=== PATIENT | male | born 1940 | race Caucasian/White ===

== ENCOUNTER 2018-01-14 20:56 | Inpatient (IN) | payer OTHER, BC ==
[2018-01-14] MEDS ORDERED: ONDANSETRON 4 MG/2 ML VIAL ONE (21:13)
[2018-01-14] MEDS ORDERED: ONDANSETRON 4 MG/2 ML VIAL IVP ONE (21:14)
[2018-01-14] MEDS ORDERED: NS 1,000 ML IV ONE ×2 (21:14→21:15)
[2018-01-14] MEDS ORDERED: KETOROLAC 30 MG/1 ML SDV IVP ONE (21:15)
[2018-01-14 21:20] LABS: PLATELET COUNT 232 10^3/uL (150-400)
--- NOTE | 2018-01-14 21:21 | CPEKG ---
Heart Rate: 84 RR Interval: 714 P-R Interval: 144 QRSD Interval: 102 QT Interval: 384 QTC Interval: 454 P [place]: 53 QRS [place]: -18 T Wave [place]: 66 EKG Severity - OTHERWISE NORMAL ECG - EKG Impression: SINUS RHYTHM EKG Impression: BORDERLINE LEFT AXIS DEVIATION EKG Impression: Early right bundle branch block Electronically Signed By: Kalpesh Best 14-Jan-2018 21:25:24
--- NOTE | 2018-01-14 21:24 | EDPHY ---
H & P Stated Complaint: ABD PAIN AND VOMITING FOR PAST 24 HOURS Time Seen by Provider: 01/14/18 21:08 HPI/ROS: CHIEF COMPLAINT: Abdominal pain HISTORY OF PRESENT ILLNESS: Patient is a 77-year-old man who comes to the emergency department. He is visiting from [place]. He is complaining of abdominal pain primarily in left lower quadrant as well as nausea and several episodes of vomiting nonbloody. He was also diagnosed with a urinary tract infection by his functional medicine chiropractor in [place] on and has been taking herbal medications since. He has not had a fever. No diarrhea. He states that he used an enema earlier today and had a denies bowel movement. He has a history of appendectomy in no cardiac disease, no chest pain or shortness of breath. REVIEW OF SYSTEMS: Constitutional: denies: chills, fever, recent illness, recent injury EENTM: denies: blurred vision, double vision, nose congestion Respiratory: denies: cough, shortness of breath Cardiac: denies: chest pain, irregular heart rate, lightheadedness, palpitations Gastrointestinal/Abdominal: See HPI Genitourinary: denies: dysuria, frequency, hematuria, pain Musculoskeletal: denies: joint pain, muscle pain Skin: denies: lesions, rash, jaundice, bruising Neurological: denies: headache, numbness, paresthesia, tingling, dizziness, weakness Hematologic/Lymphatic: denies: blood clots, easy bleeding, easy bruising Immunologic/allergic: denies: HIV/AIDS, transplant EXAM: GENERAL: Uncomfortable appearing HEAD: Atraumatic, normocephalic. EYES: Pupils equal round and reactive to light, extraocular movements intact, sclera anicteric, conjunctiva are normal. ENT: TMs normal, nares patent, oropharynx clear without exudates. Moist mucous membranes. NECK: Normal range of motion, supple without lymphadenopathy or JVD. LUNGS: Breath sounds clear to auscultation bilaterally and equal. No wheezes rales or rhonchi. HEART: Regular rate and rhythm without murmurs, rubs or gallops. ABDOMEN: Left lower quadrant tenderness, no guarding or rebound BACK: No CVA tenderness, no spinal tenderness, step-offs or deformities EXTREMITIES: Normal range of motion, no pitting or edema. No clubbing or cyanosis. NEUROLOGICAL: Cranial nerves II through XII grossly intact. Normal speech, normal gait. 5/5 strength, normal movement in all extremities, normal sensation PSYCH: Normal mood, normal affect. SKIN: Warm, dry, normal turgor, no visible rashes or lesions. Source: Patient Exam Limitations: No limitations - Personal History Current Tetanus/Diphtheria Vaccine: Unsure Current Tetanus Diphtheria and Acellular Pertussis (TDAP): Unsure - Medical/Surgical History Hx Asthma: No Hx Chronic Respiratory Disease: No Hx Diabetes: No Hx Cardiac Disease: No Hx Renal Disease: No Hx Cirrhosis: No Hx Alcoholism: No Hx HIV/AIDS: No Hx Splenectomy or Spleen Trauma: No Other PMH: APPY, "LEAKY GUT" TAKES SUPPLEMENTS - Family History Significant Family History: No pertinent family hx - Social History Smoking Status: Never smoked Alcohol Use: Sober Drug Use: None Constitutional: Initial Vital Signs Temperature (C) 37.0 C 01/14/18 21:04 Heart Rate 120 H 01/14/18 21:04 Respiratory Rate 20 01/14/18 21:04 Blood Pressure 167/118 H 01/14/18 21:04 O2 Sat (%) 90 L 01/14/18 21:04 O2 Delivery Mode Room Air Allergies/Adverse Reactions: No Known Allergies Allergy (Unverified 01/14/18 21:06) Home Medications: Medication Instructions Recorded NK [No Known Home Meds] 01/15/18 Medical Decision Making - Diagnostics EKG Interpretation: An EKG obtained and was read and documented in trace view. Please see trace view for full reading and report. Sinus rhythm early right bundle branch block , no previous for comparison Imaging: Discussed imaging studies w/ call center dispatcher Radiologist ED Course/Re-evaluation: 10:40 p.m. the patient's abdominal exam on repeat is benign. We discussed the CT findings. He has a thickening of the cecum that could be consistent with cancer and a small bowel obstruction proximally. I reviewed the images with Dr. Lawson who recommends medical admission. He tells me had a colonoscopy several years ago but cannot tell me when. No blood in his stool. 10:50 p.m. I discussed the case with Dr Schultz who will admit to the medical service. We have also paged gastrology. 10:54 p.m. I discussed the case with Dr. Plasencia who will consult. Differential Diagnosis: Partial list of the Differential diagnosis considered include but were not limited to; obstruction, diverticulitis, colitis, and although unlikely based on the history and physical exam, I also considered perforation, ischemia. - Data Points Laboratory Results: Laboratory Results 01/14/18 21:09 01/14/18 21:09 Medications Given: Sodium Chloride (Ns) 1,000 mls @ 75 mls/hr IV CONT GILLES Stop: 07/13/18 23:44 Last Admin: 01/15/18 12:00 Dose: 1,000 mls Discontinued Medications Sodium Chloride (Ns) 1,000 mls @ 0 mls/hr IV ONCE ONE PRN Reason: Wide Open Stop: 01/14/18 21:15 Last Admin: 01/14/18 21:16 Dose: 1,000 mls Sodium Chloride (Ns) 1,000 mls @ 0 mls/hr IV EDNOW ONE; Wide Open PRN Reason: Protocol Stop: 01/14/18 21:16 Last Admin: 01/14/18 21:20 Dose: 1,000 mls Ketorolac Tromethamine (Toradol) 15 mg IVP EDNOW ONE Stop: 01/14/18 21:16 Last Admin: 01/14/18 21:20 Dose: 15 mg Ondansetron HCl (Zofran) 4 mg IVP EDNOW ONE Stop: 01/14/18 21:15 Last Admin: 01/14/18 21:17 Dose: 4 mg Polyethylene Glycol/Electrolytes (Gavilyte - G) 4,000 ml PO ONCE ONE Stop: 01/15/18 11:46 Last Admin: 01/15/18 12:17 Dose: 4,000 ml Departure - Departure Disposition: [facility] Inpatient Acute Clinical Impression: Abdominal pain Qualifiers: Abdominal location: generalized Qualified Code(s): R10.84 - Generalized abdominal pain Condition: Fair
[2018-01-14] MEDS ORDERED: IOPAMIDOL (ISOVUE-300) 100 ML BTL ONE (21:44)
[2018-01-14 22:06] LABS: INR 1.07 (0.83-1.16); PROTIME(PATIENT) 14.1 SEC (12.0-15.0)
[2018-01-14] MEDS ORDERED: ACETAMINOPHEN 325 MG TAB PO PRN (23:41)
[2018-01-14] MEDS ORDERED: HYDROmorphONE/DILAUDID 2 MG/ML INJ IVP PRN (23:41)
[2018-01-15] MEDS: NS 1,000 ML IV SCH ×2 (00:28→12:00)
[2018-01-15 04:59] LABS: PLATELET COUNT 168 10^3/uL (150-400)
--- NOTE | 2018-01-15 08:41 | PDGENHP ---
History and Physical - Chief Complaint Abdominal pain nausea vomiting - History of Present Illness Source-patient provides history appears reliable. EMR was reviewed and case discussed with ED provider. HPI-this is a very pleasant 77-year-old gentleman with past medical history of chronic diarrhea, neuropathy in feet and otherwise healthy presents emergency department today with complaints of worsening left lower quadrant and nausea vomiting today. Patient reports that he was recently diagnosed with a bladder infection by a functional chiropractor who with herbal remedies. Patient resides in [place] primarily but travels to [place] several times per year. Patient arrived on on Sunday day prior to arrival in the ER and with PICC development of a cramping on and bloating pain diffusely but slightly more concentrated in his lower abdomen. Patient had several episodes of nausea vomiting without any hematemesis or biliary emesis and. He reports that he did not have a bowel movement for several days and was feeling a little constipated so he gave himself an enema he had a good bowel movement with dark stool but denied any blood or tarry stools. Patient denies any fevers or chills. He has not had any complaints of dysuria hematuria but does note bladder spasms. Patient with a previous history of appendectomy and colonoscopy multiple years ago. He has a history of basal cell carcinoma which was previously resected. No known sick contacts. History Information - Allergies/Home Medication List Allergies/Adverse Reactions: No Known Allergies Allergy (Unverified 01/14/18 21:06) Home Medications: Glucosamine Sulfate Dipot Chlr [Glucosamine] 1,000 mg PO 01/14/18 [Last Taken Unknown] L Glutamine 01/14/18 [Last Taken Unknown] Psyllium Husk [Fiber] 0.4 gm PO 01/14/18 [Last Taken Unknown] I have personally reviewed and updated: family history, medical history, social history, surgical history - Past Medical History Additional medical history: Chronic diarrhea, basal cell carcinoma status post resection, neuropathy in lower feet. - Surgical History Additional surgical history: Appendectomy, colonoscopy greater than 15 years ago , rotator cuff surgery, basal cell carcinoma resection - Family History Additional family history: Mother with history of cancer unknown type, father at an at elderly age following an MVA. - Social History Smoking Status: Never smoked Alcohol Use: Sober Drug Use: None Additional social history: Patient is retired he travels from [place] intermittently to [place]. Cor status-full Review of Systems Review of Systems: ROS: 10pt was reviewed & negative except for what was stated in HPI & below Genitourinary: Reports: other (Patient reporting some bladder spasm.). Denies: dysuria, hematuria Neurological: Reports: numbness (Chronic neuropathy in lower extremities.). Denies: weakness Physical Exam Physical Exam: Selected Entries 01/14/18 01/15/18 21:04 00:28 Blood Pressure Automatic Method Heart Rate 120 H 70 Respiratory 20 16 Rate O2 Sat (%) 90 L 93 Temperature (C) 37.0 C 37.0 C Blood Pressure 167/118 H 123/72 H Mean Arterial 134 H 89 Pressure (MAP) Activity During At Rest Vital Signs O2 Delivery Room Air Room Air Mode Blood Pressure Right Source Upper Arm Automatic Temperature Oral Oral Source Heart Rate Heart Rate/ Source Monitor Constitutional: no apparent distress, chronically ill appearing, other (NAD. Very pleasant elderly frail-appearing male is lying quietly in bed. Abdomen is slightly distended.) Eyes: PERRL, anicteric sclera, EOMI, No scleral injection Ears, Nose, Mouth, Throat: no oral mucosal ulcers, dry mucous membranes, other ( No nasal discharge), No poor dentition Cardiovascular: regular rate and rhythym, no murmur, rub, or gallop, pulses symmetric bilaterally, No edema Peripheral Pulses: 2+: dorsalis-pedis (R), dorsalis-pedis (L) Respiratory: no respiratory distress, no rales or rhonchi, clear to auscultation Gastrointestinal: no palpable masses, tenderness (L LQ), guarding (Patient with some voluntary guarding. He does withdraw from exam initially palpation in the left lower quadrant but is noting pain bilateral lower quadrants greatest in the left lower quadrant.), distension, other (Slightly hypoactive bowel sounds but present.), No rebound Skin: warm, normal color, no rashes or abrasions, other (Patient with pallor) Musculoskeletal: full muscle strength, No pain with ROM Neurologic: AAOx3, sensation intact bilaterally, CN II-XII Intact (Grossly nonfocal), No weakness, No facial droop Psychiatric: interacting appropriately, not anxious, not encephalopathic, thought process linear, No anxious, No poor insight, No poor judgement, No poor memory Lab Data & Imaging Review 01/15/18 04:28 01/15/18 04:28 Laboratory Tests 01/14/18 01/14/18 01/14/18 21:09 21:09 21:42 WBC 14.43 H RBC 5.04 Hgb 16.1 Hct 47.1 MCV 93.5 MCH 31.9 MCHC 34.2 RDW 12.8 Plt Count 232 MPV 9.7 Neut % (Auto) 87.4 H Lymph % (Auto) 5.[address] [place] % (Auto) 6.2 Eos % (Auto) 0.0 L Baso % (Auto) 0.3 Nucleat RBC Rel Count 0.0 Absolute Neuts (auto) 12.62 H Absolute Lymphs (auto) 0.79 L Absolute Monos (auto) 0.89 H Absolute Eos (auto) 0.00 L Absolute Basos (auto) 0.04 Absolute Nucleated RBC 0.00 Immature Gran % 0.6 Immature Gran # 0.09 PT 14.1 INR 1.07 APTT 25.7 Sodium 140 Potassium 4.3 Chloride 103 Carbon Dioxide 21 L Anion Gap 16 BUN 19 Creatinine 1.4 H Estimated GFR 49 Glucose 161 H Calcium 11.6 H Phosphorus 2.2 L Total Bilirubin 1.1 Conjugated Bilirubin 0.3 Unconjugated Bilirubin 0.8 AST 29 ALT 32 Alkaline Phosphatase 118 Total Protein 6.7 Albumin 4.4 Lipase 314 H Imaging Review: CT Scan of the Abdomen and Pelvis (With Contrast) at 2159 hours History: Abd Pain Comparison: None Technique: Axial computed tomographic images of the abdomen and pelvis were obtained with the uneventful intravenous administration of 75mL Isovue 300 contrast. No oral contrast. Dose reduction techniques were utilized. Findings: Lung bases: Normal. Liver: The liver enhances homogeneously and has a smooth surface contour. There are numerous well circumscribed hypoattenuating foci within the liver, those which are large enough to measure are simple fluid attenuation. No enhancing liver lesions are present. Biliary System: No Biliary ductal dilation. Spleen: Normal. Pancreas: Normal. Adrenals: Normal. Kidneys: The kidneys enhance symmetrically with no evidence of calculus or obstruction. The 10 mm cortical cyst within the medial left kidney appears simple. The bladder is unremarkable. Abdominal Aorta: No aneurysm. The small bowel is diffusely fluid distended to the ileocecal junction. The cecum and ileocecal junction are markedly thickened up to 2.1 cm (image 47) over a total segment length of approximately 6.3 cm. There is adjacent fat stranding and reactive fluid. The remainder of the ascending, transverse, descending and sigmoid colon are unremarkable. No significant diverticular disease. There is enlargement of lymph nodes within the ileocecal mesentery, the largest measuring up to 1.3 cm (image 41). There is free fluid layering within the dependent pelvis and a small amount of perihepatic and perisplenic fluid as well. There is no evidence of acute fracture. A rounded lytic area within the S2 segment of the sacrum lacks overt aggressive appearance and may represent a bone cyst. There are degenerative changes within the lower lumbar spine. Impression: 1. Marked segmental thickening of the cecum and ileocecal junction with mild surrounding inflammation and lymphadenopathy. Finding is most worrisome for underlying carcinoma or lymphoma. Pattern is less typical for inflammatory or infectious colitis. Direct endoscopic evaluation is recommended. 2. Partial small bowel obstruction secondary to cecal thickening and edema. 3. Small volume ascites. 4. Numerous simple appearing liver cysts. 5. Small lytic area within the S2 segment of the sacrum favored to represent a bone cyst as imaging features are nonaggressive. Visualized and Interpreted imaging results: Yes Visualized and Interpreted EKG results: Yes EKG additional interpertation: NSR in the 80s. LAD and right bundle branch block. QTC 454. No acute ST changes. Assessment & Plan Assessment: A/P: Pleasant 77-year-old gentleman with no significant past medical history who presents to the emergency department today with complaints of lower abdominal pain and nausea vomiting. Small bowel obstruction - patient with a area concerning for cecal thickening at the ileocecal junction. He does have a history of appendectomy. He has not had any fevers or chills. He has a slight leukocytosis but is afebrile. Patient will be placed on bowel rest at this time. GI was consulted from the emergency department will plan to see the patient in the morning. Patient will be NPO. He does not have any further nausea or vomiting at this time and does not require NG tube placement for decompression therapy. I did review with the patient differential including stricture, infectious process or possibly malignancy. Will await further GI recommendations. Patient will not be started on any antibiotic therapy at this time. Abdominal pain (Acute) - patient is abdominal pain at this time is limited to sensation of bloating. He does have Dilaudid available p.r.n. But at this time is declining and reports that he is tolerating pain adequately. Nausea vomiting - improved continue Zofran p.r.n. Leukocytosis - likely reactive in setting of nausea, vomiting, dehydration. Patient is afebrile. Will repeat CBC in the morning. Pyuria - patient reports previous history of bladder infection although he did not have a year UA completed. On today's study does show some pyuria with 1+ bacteria this is a very concentrated sample in setting of significant dehydration and will plan to send the urine for culture. Currently patient is denying any dysuria hematuria and has denies any current bladder spasm pain. He is afebrile so will hold off on antibiotic therapy for now and await culture findings. Ascites - in setting of cecal thickening concern for possible malignancy. Patient with multiple liver cysts noted on CT but no evidence of metastatic disease. FEN - IV fluids overnight while patient is NPO and for rehydration following his episodes of nausea vomiting. Electrolyte replacement p.r.n.. NPO. PPX-SCDs. Holding anticoagulation pending GI recommendations. Mobilize as tolerated. Cor status-full Disposition-patient did into the patient's status at this time in setting of bowel obstruction and findings of cecal thickening. Anticipate greater than 2 midnight stay and further evaluation of findings as noted above.
[2018-01-15] MEDS ORDERED: PEG 3350/NA SULF,BICARB,CL/KCL (GAVILYTE-G) 4000 ML BTL PO ONE (11:45)
--- NOTE | 2018-01-15 11:51 | PDMN ---
Medical Necessity Medical necessity: Pt meets IP criteria per MD; est los >2 mn for eval/tx of abdominal pain, N/V & dehydration r/t small bowel obstruction, w/ascites & cecal thickening concerning for possible malignancy; admit for further workup/ monitoring, GI consult & IVFs; hx chronic diarrhea, basal cell carcinoma s/p resection, neuropathy; per H&P & order 01/14/18
--- NOTE | 2018-01-15 11:58 | HOSPPROG ---
Hospitalist Progress Note Assessment/Plan: # acute bowel obstruction -patient presented with severe abdominal pain last successful stool was 24 hr ago with enema CT abdomen(personally reviewed and interpreted) shows concerning cecal/ileal cecal thickening consistent with possible malignancy Patient does not typically engage in allopathic medicine is anxious to return home to his osteopathic providers - GI consulted for recs related to colonoscopy - continue NPO - continue IV fluids - encourage ambulation - hopeful we can medically treat patient's bowel obstruction allowing him to return to [place] in seek ongoing care with his normal providers # urinary tract infection- urinalysis consistent with infection- cultures pending - patient has been aware he has a urinary tract infection and has chosen to treat it with molecular medicines rather than antibiotics - patient refusing antibiotics # presumed CKD- patient not receiving treatment # prophylaxis-ambulation # diet NPO # disposition greater than 2 midnights as the patient requires ongoing care for bowel obstruction I have discussed the case with Dr. Plasencia- he will review his findings with patient today Subjective: Pain improved Objective: Vital Signs Temp Pulse Resp BP Pulse Ox 36.9 C 72 18 124/78 H 100 01/15/18 10:31 01/15/18 10:31 01/15/18 10:31 01/15/18 10:31 01/15/18 10:31 Laboratory Results 01/15/18 04:28 01/15/18 04:28 01/14/18 01/15/18 01/16/18 05:59 05:59 05:59 Intake Total 2483 Output Total 200 Balance 2283 PT 14.1 SEC (12.0-15.0) 01/14/18 21:42 INR 1.07 (0.83-1.16) 01/14/18 21:42 - Physical Exam Constitutional: no apparent distress Eyes: anicteric sclera Ears, Nose, Mouth, Throat: dry mucous membranes Cardiovascular: regular rate and rhythym Respiratory: no respiratory distress Gastrointestinal: tenderness, No normoactive bowel sounds Genitourinary: no bladder fullness Skin: warm Musculoskeletal: No asymmetric calves Neurologic: AAOx3 Psychiatric: interacting appropriately Lymph, Heme, Immunologic: no cervical LAD ICD10 Worksheet Patient Problems: Problems Problem Status Onset Abdominal pain Acute
--- NOTE | 2018-01-15 12:16 | ASMTCASEMG ---
Living Arrangements What is your living Answers: Alone arrangement? Who do you live with? Type Of Residence What kind of residence do Answers: House you live in? Discharge Plan Comments Coordination Status Comments Notes: Pt is a 77 y/o man admitted for abdominal pain. Pt lives in [place]. Pt has a supportive life partner. GI has been consulted. Needs are TBD at this time. CM to follow. Plan: TBD Date Signed: 01/15/2018 12:16 PM Electronically Signed By:PAO Simon
--- NOTE | 2018-01-15 12:33 | GCON ---
[f rep st] CONSULTATION DATE OF CONSULTATION: 01/15/2018 REFERRING PHYSICIAN: Goldie Schultz MD CHIEF COMPLAINT: Abdominal pain, nausea, and vomiting. HISTORY OF PRESENT ILLNESS: Arnol is a 77-year-old gentleman who was admitted to the hospital last night through the emergency room with complaints of generalized lower abdominal pain, nausea, and vomiting. He states that occasionally he has difficulties with constipation related to travel and does travel to [place] several times per year. He has had no complaints of abdominal pain, nausea, or vomiting prior to this episode. He was recently diagnosed with a bladder infection and has been treated by a molecular practitioner and functional chiropractor with various remedies. He has not been on any antibiotics. He does have a remote history of appendectomy, which was uncomplicated. He had a colonoscopy performed 15 years ago, which he states was normal. There was no family history of GI malignancies. He has denied any fever, chills, or night sweats. He has had no further nausea or vomiting since admission. He has had some [id number] right lower quadrant and lower mid abdomen/pelvic discomfort since admission. MEDICATIONS: Glucosamine 1000 mg p.o. daily, L-Glutamine daily, and psyllium husk fiber 0.4 g p.o. daily. ALLERGIES: He has no known drug allergies. PAST MEDICAL HISTORY: Appendectomy many years ago and tonsillectomy as a child. His last colonoscopy was performed 15 years ago and was normal. Peripheral neuropathy. FAMILY HISTORY: Negative for GI malignancies, peptic ulcer disease, or inflammatory bowel disease. SOCIAL HISTORY: He is retired. He lives in [place]. He does not smoke tobacco or drink significant quantities of alcohol. REVIEW OF SYSTEMS: With the exception of the abdominal pain, nausea, vomiting, some recent constipation, and chronic lower extremity numbness, which he relates to neuropathy, this was a negative for comprehensive review of systems. PHYSICAL EXAMINATION: VITAL SIGNS: Temperature is 36.9 Celsius, pulse is 72 and regular, blood pressure is 124/78, and respiratory rate is 18. GENERAL: This is a well-developed and well-nourished male in no apparent distress. INTEGUMENT: Clear. HEENT: Head is atraumatic and normocephalic. Pupils are equal, round, and reactive to light. EOMs are intact. Sclerae are anicteric. Nares are patent. Mucous membranes are moist. Dentition is good. NECK: Supple. Trachea is midline. LYMPHATICS: No palpable cervical or axillary adenopathy. PULMONARY: Lungs are clear to percussion and auscultation. CARDIOVASCULAR: Regular rhythm and rate. Normal S1 and S2 without murmur. Peripheral pulses are strong bilaterally. No pedal edema. GASTROINTESTINAL: Abdomen is mildly distended with positive bowel sounds. No liver or spleen tip palpable. No masses or tenderness noted. No fluid wave noted. EXTREMITIES: Without deformity. NEUROLOGIC: The patient is alert and oriented x3. There are no focal neurologic deficits. LABORATORY DATA: White count is 9.75, hemoglobin 13.2, hematocrit 39.5, and platelets 168,000. Pro-time is 14.1, INR is 1.07, and PTT is 25.7. Electrolytes are normal. BUN is 22, creatinine 1.4, glucose 114, calcium 9.8, phosphorus 3.5, and magnesium is 2.4. LFTs are normal. Lipase is slightly elevated at 314. Urinalysis shows +3 leukocyte esterase, 50 to 182 RBCs per high-powered field, 50 to 182 WBCs per high powered field, and +1 bacteria. IMAGING: CT scan of the abdomen reveals marked thickening of the cecum and ileocecal junction with mild surrounding inflammatory changes and lymphadenopathy, partial small bowel obstruction, small amount of pelvic ascites , numerous simple liver cysts, and a small lytic area on S2 of the sacrum consistent with a bony cyst. IMPRESSION: 1. Abdominal pain, nausea, vomiting, and partial small-bowel obstruction, likely related to inflammatory versus infiltrative process of the ileocecal valve. Differential diagnosis includes cecal cancer versus lymphoma of the distal small bowel versus Crohn's disease (less likely). 2. Active urinary tract infection (the patient has declined antibiotic therapy) . RECOMMENDATIONS: 1. Clear liquid diet followed by Colyte prep slowly today. 2. Total colonoscopy. (I had a lengthy discussion with the patient today concerning pros and cons of colonoscopy to assess the etiology of the abnormality in his cecum. He has agreed to proceed with a Colyte prep and colonoscopy tomorrow). 3. We will follow with you. /[id number]/MODL MTDD
--- NOTE | 2018-01-16 10:51 | HOSPPROG ---
Hospitalist Progress Note Assessment/Plan: 77 yo M w abd pain, SBO, cecal mass acute bowel obstruction -patient presented with severe abdominal pain last successful stool was 24 hr ago with enema CT abdomen(personally reviewed and interpreted) shows concerning cecal/ileal cecal thickening consistent with possible malignancy Patient does not typically engage in allopathic medicine is anxious to return home to his osteopathic providers tolerated prep normal abd exam; SBO appears to have resolved urinary tract infection- urinalysis consistent with infection- cultures pending - patient has been aware he has a urinary tract infection and has chosen to treat it with molecular medicines rather than antibiotics - patient refusing antibiotics does endorse urinary sx afebrile presumed CKD- patient not receiving treatment # prophylaxis-ambulation # diet NPO # disposition greater than 2 midnights as the patient requires ongoing care for bowel obstruction Subjective: case d/w dr floyd. abd pain improved; tolerated golytely prep Objective: Vital Signs Temp Pulse Resp BP Pulse Ox 36.8 C 63 16 133/71 H 93 01/16/18 08:00 01/16/18 08:00 01/16/18 08:00 01/16/18 08:00 01/16/18 08:00 Laboratory Results 01/15/18 04:28 01/15/18 04:28 01/15/18 01/16/18 01/17/18 05:59 05:59 05:59 Intake Total 2483 889 Output Total 200 Balance 2283 889 PT 14.1 SEC (12.0-15.0) 01/14/18 21:42 INR 1.07 (0.83-1.16) 01/14/18 21:42 - Physical Exam Constitutional: no apparent distress, appears nourished Eyes: PERRL, anicteric sclera Ears, Nose, Mouth, Throat: moist mucous membranes, hearing normal Cardiovascular: regular rate and rhythym, no murmur, rub, or gallop, No tachycardia Respiratory: no respiratory distress, no rales or rhonchi Gastrointestinal: normoactive bowel sounds, soft, non-tender abdomen, No guarding, No rebound Genitourinary: no bladder fullness, No manriquez in urethra Skin: warm, normal color Musculoskeletal: full muscle strength, no muscle tenderness Neurologic: AAOx3 ICD10 Worksheet Patient Problems: Problems Problem Status Onset Abdominal pain Acute
[2018-01-16] MEDS ORDERED: LR 1,000 ML IV ONE (12:25)
--- NOTE | 2018-01-16 12:50 | PDANEPAE ---
ANE History of Present Illness 77 yo male with acute onset abd pain, full feeling, and diarrhea. ANE Past Medical History - Cardiovascular History Hx Hypertension: No Hx Arrhythmias: No - Pulmonary History Hx COPD: No Hx Oxygen in Use at Home: No Hx Sleep Apnea: No Sleep Apnea Screening Result - Last Documented: Negative - Endocrine History Hx Diabetes: No Hypothyroid: No Obesity: no - Renal History Renal History Comment: Pt believes his renal function has been diminished for awhile. Cr 1.4 - Neurological & Psychiatric Hx Hx Neurological and Psychiatric Disorders: Yes Neurological / Psychiatric History Comment: Neuropathy in feet. Unknown etiology. - Chronic Pain History Chronic Pain: No ANE Review of Systems Review of Systems: - Systems Constitutional: Reports: no symptoms Cardiac: Reports: no symptoms Respiratory: Reports: no symptoms Gastrointestinal: Reports: abdominal pain, abdominal distention ANE Patient History - Allergies Allergies/Adverse Reactions: No Known Allergies Allergy (Unverified 01/14/18 21:06) - Home Medications Home Medications: NK [No Known Home Meds] 01/15/18 [Last Taken Unknown] - NPO status NPO Since - Liquids (Date): 01/16/18 NPO Since - Liquids (Time): 07:00 NPO Since - Solids (Date): 01/16/18 NPO Since - Solids (Time): 00:00 - Anes Hx Anes Hx: no prior problems - Smoking Hx Smoking Status: Never smoked - Alcohol Use Alcohol Use: Sober - Family Anes Hx Family Anes Hx: neg - N/A ANE Labs/Vital Signs - Labs Result Diagrams: 01/15/18 04:28 01/15/18 04:28 - Vital Signs Blood Pressure: 112/56 Heart Rate: 59 Respiratory Rate: 16 O2 Sat (%): 91 Height: 185.42 cm Weight: 77.9 kg ANE Physical Exam - Airway Mallampati Score: Class 3 Mouth exam: normal dental/mouth exam - Cardiovascular Cardiovascular: regular rate and rhythym - ASA Status ASA Status: II ANE Anesthesia Plan Anesthesia Plan: GA with mask Total IV Anesthesia: Yes
[2018-01-16] MEDS ORDERED: PROPOFOL/EMULSION 500 MG/50 ML BOTTLE IV ONE (13:14)
[2018-01-16] MEDS ORDERED: LIDOCAINE 2% 5 ML SDV ONE (13:14)
[2018-01-16] MEDS ORDERED: ACETAMINOPHEN 500 MG TAB PO PRN (13:33)
[2018-01-16] MEDS ORDERED: NALOXONE HCL 0.4 MG/ML INJ IVP PRN (13:33)
[2018-01-16] MEDS ORDERED: LR 500 ML IV PRN (13:33)
[2018-01-16] MEDS ORDERED: ONDANSETRON 4 MG/2 ML VIAL IVP PRN (13:33)
[2018-01-16] MEDS ORDERED: ALBUTEROL 3 ML DEYVIAL IH PRN (13:33)
--- NOTE | 2018-01-16 14:01 | POSTANESTH ---
Post Anesthetic Evaluation Cardiovascular Status: Normal, Stable Respiratory Status: Normal, Stable Level of Consciousness/Mental Status: Moderately Sleepy Pain Control: Adequate, Prn Tx Ordered Nausea/Vomiting Control: Adequate, Prn Tx Ordered Complications Possibly Related to Anesthesia: None Noted
--- NOTE | 2018-01-16 14:03 | GIREPORT ---
[facility] Surgical Services - Endoscopy Department Patient Name: Arnol Trujillo Procedure Date: 01/16/2018 11:01 AM Patient Type: Inpatient Attending MD/ ER Physician: Alejandro Plasencia MD Procedure: Colonoscopy Indications: Abnormal CT of the GI tract Providers: Alejandro Plasencia MD Medicines: Total IV Anesthesia (TIVA) Complications: No immediate complications. Description of Procedure: After obtaining informed consent, the scope was passed under direct vis ion. Throughout the procedure, the patient's blood pressure, pulse, and oxyg en saturations were monitored continuously. The Colonoscope with irrigatio n channel was introduced through the anus and advanced to the cecum, identified by palpation. The colonoscopy was somewhat difficult due to significant looping and a tortuous colon. Successful completion of the procedure was aided by using manual pressure and straightening and shortening the scope to obtain bowel loop reduction. The patient tolera christina the procedure well. The quality of the bowel preparation was excellent. Findings: A fungating, infiltrative and ulcerated completely obstructing large ma ss was found in the cecum. The mass was circumferential. No bleeding was present. Biopsies were taken with a cold forceps for histology. A 4 mm polyp was found in the distal ascending colon. The polyp was ses sile. The polyp was removed with a cold biopsy forceps. Resection and retriev al were complete. The transverse colon appeared normal. A 5 mm polyp was found in the descending colon. The polyp was sessile. The polyp was removed with a cold biopsy forceps. Resection and retrieval w ere complete. A 15 mm polyp was found in the sigmoid colon. The polyp was pedunculate d. The polyp was removed with a hot snare. Resection and retrieval were complete. The rectum appeared normal. The perianal and digital rectal examinations were normal. Estimated Blood Loss: Estimated blood loss: none. 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 - One 4 mm polyp in the distal ascending colon, removed with a cold bio psy forceps. Resected and retrieved. - The transverse colon is normal. - One 5 mm polyp in the descending colon, removed with a cold biopsy forceps. Resected and retrieved. - One 15 mm polyp in the sigmoid colon, removed with a hot snare. Resec christina and retrieved. - The rectum is normal. Recommendation: - [facility] patient to [facility] for [facility] care. - Clear liquid diet today. - Await pathology results. - Refer to a surgeon today. Attending Participation: I personally performed the entire procedure. Alejandro Plasencia MD Alejandro Plasencia MD 01/16/2018 2:02:48 PM This report has been signed electronicallyAlejandro Plasencia MD Number of Addenda: 0 Note Initiated On: 01/16/2018 11:01 AM Total Procedure Duration Time 0 hours 27 minutes 55 seconds [email or web address]
[2018-01-16] MEDS ORDERED: cefOXitin SODIUM 2 GM in STERILE WATER INJ 21 ML IV ONE (16:05)
--- NOTE | 2018-01-16 16:56 | SOAPPROG ---
SUSHANT Progress Note Assessment/Plan: Assessment/Plan: 77 Y M admitted with SBO found to be 2/2 obstructing cecal tumor. Personally reviewed CT images and colonoscopy report. Plan for lap assisted R hemicolectomy tomorrow, tentatively at 10:45. Clears for now and NPO after midnight. Risks and options discussed. Consent in chart. Dr. Hoang to see patient this evening. S: no pain or nausea now. O: alert, nad ctab rrr abd soft, nt 01/16/18 16:48 Objective: Vital Signs Temp Pulse Resp BP Pulse Ox 36.6 C 55 L 16 146/71 H 95 01/16/18 16:00 01/16/18 16:00 01/16/18 16:00 01/16/18 16:00 01/16/18 16:00 Laboratory Results 01/15/18 04:28 01/15/18 04:28 01/15/18 01/16/18 01/17/18 05:59 05:59 05:59 Intake Total 2483 889 925 Output Total 200 3 Balance 2283 889 922 PT 14.1 SEC (12.0-15.0) 01/14/18 21:42 INR 1.07 (0.83-1.16) 01/14/18 21:42 ICD10 Worksheet Patient Problems: Problems Problem Status Onset Abdominal pain Acute
--- NOTE | 2018-01-16 20:04 | PDGENHP ---
History & Physical Chief Complaint: CEAL CANCER, OBSTRUCTING History of Present Illness: 77 MALE WITH OBSTRUCTION 2/2 CECAL CA SEEN ON COLONOSCOPY AND CT. SUDDEN ONSET OF SX. NO HX OF ANEMIA, WT LOSS OR MELENA. RISKS AND OPTIONS FULLY DISCUSSED AND HE WISHES TO PROCEED WITH SURGERY Pertinent Past, Social, Family History: PHX: ROTATOR CUFF, APPE, BASALCELL. ROS - 10 PT REVIEW, HE DOES NOT SMOKE. FAM HX NONCONTRIB. NKA. MEDS NONE Relevant Physical Exam: HEENT NONICTERIC, NO ADENOPATHY, NO ORAL LESIONS. CHEST CLEAR. COR RR. ABD SOFT, NONTENDER, MILDLY DISTENDED, NO MASSES. GEN OK. EXTREM FULL PULSES. NEURO PHYSIOLOGIC Cardiorespiratory Assessment: IMP: OBSTRUCTING CECAL CANCER. PLAN:LAP RT HEMICOLECTOMY/ RISKS AND OPTIONS FULLY DISCUSSED
[2018-01-16] MEDS: HYDROmorphone HCL/NS 0.5 MG/ML SYR IVP PRN (23:29)
[2018-01-17] MEDS ORDERED: HEPARIN 1000 UNIT/1 ML MDV ONE (07:25)
[2018-01-17] MEDS ORDERED: BUPIVACAINE 0.5% 30 ML SDV ONE (07:25)
[2018-01-17] MEDS ORDERED: ceFAZolin 1 GM/5 ML SYR ONE (07:25)
--- NOTE | 2018-01-17 08:57 | SOAPPROG ---
SOAP Progress Note Assessment/Plan: Assessment 1. Cecal cancer-biopsied. 2. Several benign appearing colon polyps-removed. Plan: 1. Will review path this pathologist this am. 2. Right hemicolectomy today with Dr. Hoang. Alejandro Plasencia MD 01/17/18 08:54 Subjective: CC: Cecal tumor with partial bowel obstruction. Interval HPI: Patient slept well last night. One blood tinged fluid BM since colonoscopy. No abdominal pain, nausea or vomiting. Objective: Vital Signs Temp Pulse Resp BP Pulse Ox 36.9 C 59 L 16 146/74 H 97 01/17/18 07:53 01/17/18 07:53 01/17/18 07:53 01/17/18 07:53 01/17/18 07:53 Laboratory Results 01/15/18 04:28 01/15/18 04:28 01/16/18 01/17/18 01/18/18 05:59 05:59 05:59 Intake Total 889 1715 Output Total 253 Balance 889 1462 PT 14.1 SEC (12.0-15.0) 01/14/18 21:42 INR 1.07 (0.83-1.16) 01/14/18 21:42 Physical Exam - Physical Exam General Appearance: WD/WN, alert, no apparent distress Respiratory: lungs clear, normal breath sounds Cardiac/Chest: regular rate, rhythm Abdomen: normal bowel sounds, non-tender, soft Skin: normal color, warm/dry Neuro/Psych: normal mood/affect, oriented x 3 ICD10 Worksheet Patient Problems: Problems Problem Status Onset Abdominal pain Acute
--- NOTE | 2018-01-17 09:45 | HOSPPROG ---
Hospitalist Progress Note Assessment/Plan: 77 yo M w abd pain, SBO, cecal mass acute bowel obstruction - 2/2 obstructing cecal mass to OR today w dr [facility] urinary tract infection- urinalysis consistent with infection- cultures pending - patient has been aware he has a urinary tract infection and has chosen to treat it with molecular medicines rather than antibiotics - patient refusing antibiotics does endorse urinary sx afebrile presumed CKD- patient not receiving treatment prophylaxis-ambulation diet NPO disposition greater than 2 midnights as the patient requires ongoing care for bowel obstruction Subjective: case d/w nolan [facility] and [place] Objective: Vital Signs Temp Pulse Resp BP Pulse Ox 36.9 C 59 L 16 146/74 H 97 01/17/18 07:53 01/17/18 07:53 01/17/18 07:53 01/17/18 07:53 01/17/18 07:53 Laboratory Results 01/15/18 04:28 01/15/18 04:28 01/16/18 01/17/18 01/18/18 05:59 05:59 05:59 Intake Total 889 1715 Output Total 253 Balance 889 1462 PT 14.1 SEC (12.0-15.0) 01/14/18 21:42 INR 1.07 (0.83-1.16) 01/14/18 21:42 - Physical Exam Constitutional: no apparent distress, appears nourished Eyes: PERRL, anicteric sclera Ears, Nose, Mouth, Throat: moist mucous membranes, hearing normal Cardiovascular: regular rate and rhythym, no murmur, rub, or gallop Respiratory: no respiratory distress, no rales or rhonchi Gastrointestinal: normoactive bowel sounds, soft, non-tender abdomen Genitourinary: no bladder fullness, No manriquez in urethra Skin: warm, normal color Musculoskeletal: full muscle strength, no muscle tenderness Neurologic: AAOx3 ICD10 Worksheet Patient Problems: Problems Problem Status Onset Abdominal pain Acute
[2018-01-17] MEDS ORDERED: LR 1,000 ML IV ONE (12:10)
[2018-01-17] MEDS ORDERED: cefOXitin SODIUM 2 GM in STERILE WATER INJ 21 ML IV ONE (13:30)
--- NOTE | 2018-01-17 14:07 | PDANEPAE ---
ANE Past Medical History - Cardiovascular History Hx Hypertension: No Hx Arrhythmias: No Hx Chest Pain: No Hx Coronary Artery / Peripheral Vascular Disease: No Hx CHF / Valvular Disease: No Hx Palpitations: No - Pulmonary History Hx COPD: No Hx Asthma/Reactive Airway Disease: No Hx Recent Upper Respiratory Infection: No Hx Oxygen in Use at Home: No Hx Sleep Apnea: No Sleep Apnea Screening Result - Last Documented: Negative - Endocrine History Hx Diabetes: No Hypothyroid: No Hyperthyroid: No Obesity: no - Renal History Renal History Comment: Pt believes his renal function has been diminished for awhile. Cr 1.4 - Liver History Hx Hepatic Disorders: No - Neurological & Psychiatric Hx Hx Neurological and Psychiatric Disorders: Yes Neurological / Psychiatric History Comment: Neuropathy in feet. Unknown etiology. - Cancer History Hx Cancer: Yes - Congenital Disorder History Hx Congenital Disorders: No - GI History GERD: no Hx Gastrointestinal Disorders: Yes Gastrointestinal History Comment: colon cancer - Chronic Pain History Chronic Pain: No ANE Review of Systems Review of Systems: - Exercise capacity Exercise capacity: >=4 METS - Systems Cardiac: Reports: no symptoms Respiratory: Reports: no symptoms Hematologic/Lymphatic: Reports: anemia ANE Patient History - Allergies Allergies/Adverse Reactions: No Known Allergies Allergy (Unverified 01/14/18 21:06) - Home Medications Home Medications: NK [No Known Home Meds] 01/15/18 [Last Taken Unknown] - NPO status NPO Since - Liquids (Date): 01/16/18 NPO Since - Liquids (Time): 00:01 NPO Since - Solids (Date): 01/16/18 NPO Since - Solids (Time): 20:00 - Anes Hx Anes Hx: no prior problems - Smoking Hx Smoking Status: Never smoked - Alcohol Use Alcohol Use: Sober - Family Anes Hx Family Anes Hx: neg - N/A ANE Labs/Vital Signs - Labs Result Diagrams: 01/15/18 04:28 01/15/18 04:28 - Vital Signs Blood Pressure: 143/83 Heart Rate: 63 Respiratory Rate: 16 O2 Sat (%): 95 Height: 185.42 cm Weight: 76.249 kg ANE Physical Exam - Airway Neck exam: FROM Mallampati Score: Class 2 Mouth exam: normal dental/mouth exam - Pulmonary Pulmonary: no respiratory distress, no rales or rhonchi, clear to auscultation - Cardiovascular Cardiovascular: regular rate and rhythym, no murmur, rub, or gallop - ASA Status ASA Status: III ANE Anesthesia Plan Anesthesia Plan: general endotracheal anesthesia Total IV Anesthesia: No
[2018-01-17] MEDS ORDERED: PROPOFOL 200 MG/20 ML VIAL ONE (14:26)
[2018-01-17] MEDS ORDERED: REMIFENTANIL HCL 1 MG VIAL ONE ×2 (14:26→15:58)
[2018-01-17] MEDS ORDERED: fentaNYL 100 MCG/2 ML INJ ONE ×5 (14:26→17:39)
[2018-01-17] MEDS ORDERED: DEXAMETHASONE 4 MG/ML VIAL ONE (14:26)
[2018-01-17] MEDS ORDERED: PROPOFOL/EMULSION 500 MG/50 ML BOTTLE IV ONE ×2 (14:26→15:58)
[2018-01-17] MEDS ORDERED: ROCURONIUM 50 MG/5 ML VIAL ONE (14:26)
[2018-01-17] MEDS ORDERED: ONDANSETRON 4 MG/2 ML VIAL ONE (14:26)
[2018-01-17] MEDS ORDERED: LIDOCAINE 2% 5 ML SDV ONE (14:30)
[2018-01-17] MEDS ORDERED: oxyCODONE IR 5 MG TAB PO PRN (15:19)
[2018-01-17] MEDS ORDERED: NS 500 ML IV PRN (15:19)
[2018-01-17] MEDS ORDERED: NALOXONE HCL 0.4 MG/ML INJ IVP PRN ×2 (15:19→16:22)
[2018-01-17] MEDS ORDERED: HYDROCODONE/APAP 5/325 TAB PO PRN (15:19)
[2018-01-17] MEDS ORDERED: fentaNYL 100 MCG/2 ML INJ IVP PRN (15:19)
[2018-01-17] MEDS ORDERED: epHEDrine SULFATE 10 MG/ML SYR IVP PRN (15:19)
[2018-01-17] MEDS ORDERED: ONDANSETRON 4 MG/2 ML VIAL IVP PRN (15:19)
[2018-01-17] MEDS ORDERED: PROMETHAZINE HCL 25 MG/ML INJ IVP PRN (15:19)
[2018-01-17] MEDS ORDERED: PHENYLEPHRINE HCL 100 MCG/ML SYR IVP PRN (15:19)
[2018-01-17] MEDS ORDERED: GLYCOPYRROLATE 0.2 MG/1 ML VIAL ONE ×2 (16:17)
[2018-01-17] MEDS ORDERED: NEOSTIGMINE METHYLSULFATE 3 MG/3 ML SYR ONE (16:17)
--- NOTE | 2018-01-17 16:20 | ASMTCMCOM ---
CM Note CM Note Notes: Today Pt. had colectomy surgery w/ Dr. Hoang. PT and OT not ordered. Per RN, Pt. was very fit and able prior to surgery. Anticipate independent d/c unless Pt. has needs post surgery. CM available should d/c POC change. Date Signed: 01/17/2018 04:20 PM Electronically Signed By:Nisha Aburto LCSW
[2018-01-17] MEDS ORDERED: HYDROmorphONE/DILAUDID 6 MG/30 ML PCA IV PRN (16:22)
[2018-01-17] MEDS ORDERED: diphenhydrAMINE 25 MG CAP PO PRN (16:22)
[2018-01-17] MEDS ORDERED: METOCLOPRAMIDE 10 MG/2 ML VIAL IVP PRN (16:22)
[2018-01-17] MEDS: fentaNYL 100 MCG/2 ML INJ IVP PRN ×4 (16:47→17:12)
--- NOTE | 2018-01-17 16:54 | POSTANESTH ---
Post Anesthetic Evaluation Cardiovascular Status: Tx Hyper/Hypo-tension Respiratory Status: Normal, Stable Level of Consciousness/Mental Status: Can Participate in Eval Pain Control: Inadeq, Add Tx Required Nausea/Vomiting Control: Adequate, Prn Tx Ordered Complications Possibly Related to Anesthesia: None Noted
[2018-01-17] MEDS ORDERED: ENALAPRILAT DIHYDRATE 1.25 MG/ML VIAL ONE (17:25)
[2018-01-17] MEDS: ENALAPRILAT DIHYDRATE 1.25 MG/ML VIAL IVP PRN ×2 (17:26→18:07)
[2018-01-17] MEDS ORDERED: METOCLOPRAMIDE 10 MG/2 ML VIAL ONE (17:44)
[2018-01-17] MEDS ORDERED: SIMETHICONE 80 MG TAB CHEW PO ONE (18:15)
[2018-01-17] MEDS ORDERED: METOCLOPRAMIDE 10 MG/2 ML VIAL IVP ONE (18:15)
--- NOTE | 2018-01-17 18:28 | POSTOPPROG ---
Post Op Note Date of Operation: 01/17/18 Surgeon: Mack Hoang Tuber Operator: Gregor Anesthesiologist: Letty Anesthesia: GET(General Endotracheal) Pre-op Diagnosis: Colon CA Post-op Diagnosis: same Indication: same Procedure: Open right hemicolectomy Inf/Abcess present in the surg proc area at time of surgery?: No Depth: Organ Space EBL: 100-500 Complications: None Specimen(s): Right colon
[2018-01-17] MEDS: NS 1,000 ML IV SCH (20:08)
[2018-01-18 04:55] LABS: PLATELET COUNT 162 10^3/uL (150-400)
[2018-01-18] MEDS: HYDROmorphone HCL/NS 0.5 MG/ML SYR IVP PRN (05:10)
[2018-01-18] MEDS: TAMSULOSIN HCL 0.4 MG CAP PO SCH (09:55)
--- NOTE | 2018-01-18 09:58 | HOSPPROG ---
Hospitalist Progress Note Assessment/Plan: New patient encounter 77 yo Male abd pain, SBO, cecal mass, s/p resection on 01/17 acute bowel obstruction - 2/2 obstructing cecal mass s/p surgical resection per Dr. Hoang 01/17 urinary tract infection- urinalysis consistent with infection - cultures c/w Streptococcus Gallolyticus - patient has been aware he has a urinary tract infection and has chosen to treat it with molecular medicines rather than antibiotics. does endorse urinary sx - Now on Rocephin, Day 2. Will treat for complicated UTI. presumed CKD- patient not receiving treatment Anemia, mild, likely postoperative, monitor for now prophylaxis-ambulation, SCD's. diet CLD, diet per surgery. cont IVF at 75ml/hr until better oral intake disposition greater than 2 midnights as the patient requires ongoing care for bowel obstruction Subjective: pain is well controlled. tolerating small amount of CLD. No breathing issues. Labs reviwed, Hgb mild drop. Objective: Vital Signs Temp Pulse Resp BP Pulse Ox 36.6 C 74 18 140/66 H 93 01/18/18 07:26 01/18/18 07:26 01/18/18 07:26 01/18/18 07:26 01/18/18 07:26 Microbiology 01/15/18 01:40 Urine Culture - Final Unspecified Streptococcus Galloylyticus Laboratory Results 01/18/18 04:16 01/18/18 04:16 01/17/18 01/18/18 01/19/18 05:59 05:59 05:59 Intake Total 1715 2320 880 Output Total 253 1775 Balance 1462 545 880 PT 14.1 SEC (12.0-15.0) 01/14/18 21:42 INR 1.07 (0.83-1.16) 01/14/18 21:42 - Physical Exam Constitutional: no apparent distress, not in pain Eyes: PERRL, EOMI Ears, Nose, Mouth, Throat: moist mucous membranes, hearing normal Cardiovascular: regular rate and rhythym, No edema Respiratory: no respiratory distress, no rales or rhonchi, clear to auscultation Gastrointestinal: No guarding, No rebound Skin: warm Musculoskeletal: full muscle strength Neurologic: AAOx3 Psychiatric: interacting appropriately, not anxious Lymph, Heme, Immunologic: No petechiae ICD10 Worksheet Patient Problems: Problems Problem Status Onset Abdominal pain Acute
--- NOTE | 2018-01-18 10:38 | SOAPPROG ---
SOAP Progress Note Assessment/Plan: Assessment: 77 y/o M s/p right hemicolectomy for CA 01/17 S: Sitting up in chair. Moderate incisional pain. Hasn't been able to urinate since his manriquez catheter was pulled. He would like some flomax. Not passing flatus or BMs yet. Denies nausea. O: Alert Afebrile Cardiac: RRR Lungs: CTA bilaterally Abdomen: softly distended, normoactive BS, tender to palpation, dressing cdi. Plan: Flomax ordered. Will check another Cr and give toradol if normal. Get up OOB as much as possible. 01/18/18 10:33 Objective: Vital Signs Temp Pulse Resp BP Pulse Ox 36.6 C 74 18 140/66 H 93 01/18/18 07:26 01/18/18 07:26 01/18/18 07:26 01/18/18 07:26 01/18/18 07:26 Microbiology 01/15/18 01:40 Urine Culture - Final Unspecified Streptococcus Galloylyticus Laboratory Results 01/18/18 04:16 01/18/18 04:16 01/17/18 01/18/18 01/19/18 05:59 05:59 05:59 Intake Total 1715 2320 880 Output Total 253 1775 Balance 1462 545 880 PT 14.1 SEC (12.0-15.0) 01/14/18 21:42 INR 1.07 (0.83-1.16) 01/14/18 21:42 ICD10 Worksheet Patient Problems: Problems Problem Status Onset Abdominal pain Acute
[2018-01-18] MEDS: HYDROCODONE/APAP 5/325 TAB PO PRN (12:03)
--- NOTE | 2018-01-18 13:44 | SOAPPROG ---
SOAP Progress Note Assessment/Plan: Assessment 1. 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 2. Several benign appearing colon polyps-removed. Plan: 1. Will review surgical path when available. 2. F/U colonoscopy in 6 months. 3. Will sign off today. Alejandro Plasencia MD 01/18/18 13:40 Subjective: CC: Cecal cancer, S/P resection. Interval HPI: Patient doing well post-op day #1. Answered multiple complains concerning F/U colon cancer. Objective: Vital Signs Temp Pulse Resp BP Pulse Ox 37.2 C 100 18 142/67 H 92 01/18/18 10:41 01/18/18 10:41 01/18/18 10:41 01/18/18 10:41 01/18/18 10:41 Microbiology 01/15/18 01:40 Urine Culture - Final Unspecified Streptococcus Galloylyticus Laboratory Results 01/18/18 04:16 01/18/18 10:50 01/17/18 01/18/18 01/19/18 05:59 05:59 05:59 Intake Total 1715 2320 880 Output Total 253 1775 Balance 1462 545 880 PT 14.1 SEC (12.0-15.0) 01/14/18 21:42 INR 1.07 (0.83-1.16) 01/14/18 21:42 Physical Exam - Physical Exam General Appearance: WD/WN, alert, no apparent distress Respiratory: chest non-tender, lungs clear, normal breath sounds Cardiac/Chest: normal peripheral pulses, regular rate, rhythm Abdomen: normal bowel sounds, non-tender, soft Skin: normal color, warm/dry Neuro/Psych: no motor/sensory deficits, alert, normal mood/affect, oriented x 3 ICD10 Worksheet Patient Problems: Problems Problem Status Onset Abdominal pain Acute
[2018-01-18] MEDS: KETOROLAC 15 MG/1 ML SDV IVP SCH ×2 (17:48→23:05)
[2018-01-18] MEDS: ONDANSETRON 4 MG/2 ML VIAL IVP PRN (22:57)
[2018-01-19] MEDS: KETOROLAC 15 MG/1 ML SDV IVP SCH ×4 (04:53→23:49)
[2018-01-19 05:09] LABS: PLATELET COUNT 135 10^3/uL (150-400)
[2018-01-19] MEDS: TAMSULOSIN HCL 0.4 MG CAP PO SCH (09:43)
--- NOTE | 2018-01-19 10:17 | SOAPPROG ---
SOAP Progress Note Assessment/Plan: Assessment/Plan: 77 Y M admitted with SBO found to be 2/2 obstructing cecal tumor. s/p laparotomy with right colectomy. Ileus. Tolerating clears. Is walking. Hold off on advancing diet any further until better bowel function. Wounds. cdi c ting. S: pain controlled. walked in hallway this morning. not passing gas. denies nausea. says mouth is dry. O: alert, nad ctab rrr abd softly bloated, appropriately tender, inc cdi c ting and old crusted blood 01/19/18 10:15 Objective: Vital Signs Temp Pulse Resp BP Pulse Ox 36.7 C 83 91 H 145/86 H 16 L 01/19/18 08:00 01/19/18 08:00 01/19/18 08:00 01/19/18 08:00 01/19/18 08:00 Laboratory Results 01/19/18 04:35 01/18/18 10:50 01/18/18 01/19/18 01/20/18 05:59 05:59 05:59 Intake Total 2320 2564 Output Total 1775 1150 Balance 545 1414 PT 14.1 SEC (12.0-15.0) 01/14/18 21:42 INR 1.07 (0.83-1.16) 01/14/18 21:42 ICD10 Worksheet Patient Problems: Problems Problem Status Onset Abdominal pain Acute
--- NOTE | 2018-01-19 11:40 | ASMTCMCOM ---
CM Note CM Note Notes: Spoke w/RN, plan remains the same. Pt will dc home w/support of LP when medically stable. CM available for any changes. DC Plan: Independent Date Signed: 01/19/2018 11:40 AM Electronically Signed By:Danita Yañez RN
--- NOTE | 2018-01-19 12:39 | HOSPPROG ---
Hospitalist Progress Note Assessment/Plan: 77 yo Male abd pain, SBO, cecal mass, s/p resection on 01/17 acute bowel obstruction - 2/2 obstructing cecal mass s/p surgical resection per Dr. Hoang 01/17 +Flatus today around noon Cecal cancer, path pending, will need to be followed. -GI has signed off -will need a repeat colonoscopy in 6 months urinary tract infection- urinalysis consistent with infection - cultures c/w Streptococcus Gallolyticus - patient has been aware he has a urinary tract infection and has chosen to treat it with molecular medicines rather than antibiotics. does endorse urinary sx - Now on Rocephin, Day 3. Will treat for complicated UTI. Likely Acute renal failure: resolved Anemia, mild, likely postoperative, resolving, labs reviewed today prophylaxis-ambulation, SCD's. diet CLD, diet per surgery. cont IVF at 75ml/hr until better oral intake (cont for now, still with low oral intake) cont inpatient Subjective: now passing Flatus. Abd pain is well controlled. tolerating some clears Objective: Vital Signs Temp Pulse Resp BP Pulse Ox 36.7 C 95 20 136/84 H 94 01/19/18 12:18 01/19/18 12:18 01/19/18 12:18 01/19/18 12:18 01/19/18 12:18 Laboratory Results 01/19/18 04:35 01/18/18 10:50 01/18/18 01/19/18 01/20/18 05:59 05:59 05:59 Intake Total 2320 2564 Output Total 1775 1150 Balance 545 1414 PT 14.1 SEC (12.0-15.0) 01/14/18 21:42 INR 1.07 (0.83-1.16) 01/14/18 21:42 - Physical Exam Constitutional: no apparent distress, not in pain Eyes: PERRL, EOMI Ears, Nose, Mouth, Throat: moist mucous membranes, hearing normal Cardiovascular: regular rate and rhythym, No edema Respiratory: no respiratory distress, no rales or rhonchi, clear to auscultation Gastrointestinal: normoactive bowel sounds, tenderness (appropriate tenderness) , distension Skin: warm Neurologic: AAOx3 Psychiatric: interacting appropriately, not anxious, not encephalopathic Lymph, Heme, Immunologic: No petechiae ICD10 Worksheet Patient Problems: Problems Problem Status Onset Abdominal pain Acute
--- NOTE | 2018-01-19 16:31 | GOP ---
[f rep st] OPERATIVE REPORT DATE OF OPERATION: 01/17/2018 SURGEON: Mack Hoang MD DEPUTY COURT: Nataly Bundy NP. ANESTHESIOLOGIST: Santa Saenz DO PREOPERATIVE DIAGNOSIS: Cecal obstructing carcinoma. POSTOPERATIVE DIAGNOSIS: Cecal obstructing carcinoma. PROCEDURE PERFORMED: Lap-assisted right hemicolectomy. FINDINGS: Patient was found to have a 6 cm mass in the cecum, which was obstructing the terminal ile um. The small bowel was markedly dilated and difficult to see around. The tumor itself was fixed in the right lower quadrant to the lateral abdominal wall, but this appeared to be more from adhesions from previous appendectomy with no evidence of tumor invasion in the wall. There were multiple spots on his liver which appeared to be cystic, but no evidence of any metastatic disease in the abdomen v isually. DESCRIPTION OF PROCEDURE: Patient was taken to the operating room where he received satisfactory gen eral endotracheal anesthesia by Dr. Saenz. He was placed in supine position and prepped and dr aped in the usual sterile fashion. A periumbilical incision was made. A Veress needle inserted. Pn eumoperitoneum was established. Trocar was introduced. Laparoscope introduced. Good visualization was obtained. Two other trocars were placed under direct vision in the abdomen as well. The exposur e was somewhat difficult because of the dilated small bowel. The cecum and the terminal ileum were i dentified. They were mobilized laterally by dividing the connection to the lateral peritoneal wall. This was a fairly tight connection and was divided with the Harmonic Scalpel until it could be mobil ized medially. Much care was taken to identify the ureter and spare it from any injury. The dissect ion extended up around the hepatic flexure of the colon and the proximal transverse colon. The bowel was elevated up. The right colon mesentery was divided with the Harmonic Scalpel, with care to avoi d injury to the duodenum or the ureter. After adequate mobilization was achieved, a periumbilical in cision was made, extending up to the midline. A wound protector was placed, and the specimen was bro ught out through this incision. Any further lateral attachments were divided with the Harmonic Scalp el, and the mesenteric division was completed. The ileum was divided with a RC stapler as was the t ransverse colon. The specimen was removed and sent to Pathology. A [id number] anastomosis was mad e between the terminal ileum and the transverse colon. This was done with a RC stapler and a cross application of the stapler to close the insertion site. Suture line was reinforced with 3-0 silk int errupted sutures proximally and distally. The cut edges of the bowel were then imbricated with a run renetta 3-0 Vicryl suture, and the mesentery between the ileum and the transverse colon was closed with a running 3-0 Vicryl suture. The wound was irrigated. Hemostasis was assured. The bowel was return ed to the abdomen, and the Brando wound retractor was removed. We switched to clean closure set with new gowns, gloves, towels, and instruments, and the wound was c losed with a running 0 PDS suture for the linea alba, 3-0 Vicryl for the subcu, and 4-0 Monocryl subc uticular stitch for the skin along with the other laparoscopic trocar sites. All layers were infiltr ated with 0.5% Marcaine. Blood loss from the procedure was less than 100 mL. There were no complica tions. /[id number]/MODL
[2018-01-19] MEDS ORDERED: SODIUM CL NASAL 45 ML BTL EACHNARE PRN (20:20)
[2018-01-20] MEDS: ONDANSETRON 4 MG/2 ML VIAL IVP PRN (00:51)
[2018-01-20] MEDS: KETOROLAC 15 MG/1 ML SDV IVP SCH ×3 (05:19→18:45)
[2018-01-20] MEDS: TAMSULOSIN HCL 0.4 MG CAP PO SCH (09:07)
--- NOTE | 2018-01-20 13:02 | HOSPPROG ---
Hospitalist Progress Note Assessment/Plan: 77 yo Male abd pain, SBO, cecal mass, s/p resection on 01/17 acute bowel obstruction - 2/2 obstructing cecal mass s/p surgical resection per Dr. Hoang 01/17 Had BM earlier Cecal cancer, path pending, will need to be followed. -GI has signed off -will need a repeat colonoscopy in 6 months urinary tract infection- urinalysis consistent with infection - cultures c/w Streptococcus Gallolyticus - Now on Rocephin, Day 4. Will treat for complicated UTI. Likely Acute renal failure: resolved Anemia, mild, likely postoperative, hgb is stable. no indication for transfusion prophylaxis-ambulation, SCD's. diet CLD, diet per surgery. They will likely advance today. I have decreased IVF to 50ml/hr. If appropriate oral intake, this can be stopped. cont inpatient Subjective: Had one BM. Abd is still distended. no o/n events. no cp or sob. no edema Objective: Vital Signs Temp Pulse Resp BP Pulse Ox 36.9 C 86 16 168/92 H 92 01/20/18 08:00 01/20/18 08:00 01/20/18 08:00 01/20/18 08:00 01/20/18 08:00 Laboratory Results 01/19/18 04:35 01/18/18 10:50 01/19/18 01/20/18 01/21/18 05:59 05:59 05:59 Intake Total 2564 650 Output Total 1150 875 Balance 1414 -225 PT 14.1 SEC (12.0-15.0) 01/14/18 21:42 INR 1.07 (0.83-1.16) 01/14/18 21:42 - Physical Exam Constitutional: no apparent distress Eyes: PERRL Ears, Nose, Mouth, Throat: moist mucous membranes Cardiovascular: regular rate and rhythym, No edema Respiratory: no respiratory distress, no rales or rhonchi Gastrointestinal: distension, No guarding, No rebound Skin: warm Neurologic: AAOx3 Psychiatric: interacting appropriately, not anxious, not encephalopathic, thought process linear Lymph, Heme, Immunologic: No petechiae ICD10 Worksheet Patient Problems: Problems Problem Status Onset Abdominal pain Acute
--- NOTE | 2018-01-20 13:06 | SOAPPROG ---
SOAP Progress Note Assessment/Plan: Assessment/Plan: 77 Y M admitted with SBO found to be 2/2 obstructing cecal tumor. s/p laparotomy with right colectomy. Ileus. BM yesterday. Advance to light diet. Can dc reglan. Wounds. cdi c ting. Labs on 01/19 ok--no white count, H&H stable, Cr improved. Pathology pending. Dispo: probably in next one to two days. S: walking about 5 times a day. feeling very tired. pain controlled. Loose BM yesterday. Had nausea--discussed antiemetics. O: alert, nad ctab rrr abd softer, appropriately tender, inc cdi c ting and old crusted blood, better bowel sounds. 01/20/18 13:04 Objective: Vital Signs Temp Pulse Resp BP Pulse Ox 36.9 C 86 16 168/92 H 92 01/20/18 08:00 01/20/18 08:00 01/20/18 08:00 01/20/18 08:00 01/20/18 08:00 Laboratory Results 01/19/18 04:35 01/18/18 10:50 01/19/18 01/20/18 01/21/18 05:59 05:59 05:59 Intake Total 2564 650 Output Total 1150 875 Balance 1414 -225 PT 14.1 SEC (12.0-15.0) 01/14/18 21:42 INR 1.07 (0.83-1.16) 01/14/18 21:42 ICD10 Worksheet Patient Problems: Problems Problem Status Onset Abdominal pain Acute
[2018-01-20] MEDS ORDERED: ONDANSETRON DISINTEGRATING 4 MG TAB PO PRN (13:07)
--- NOTE | 2018-01-20 13:10 | POSTOPPROG ---
Post Op Note Date of Operation: 01/20/18 Surgeon: Mack Hoang Chief Program Officer: Blossom Slade Anesthesiologist: Tresa Rice Anesthesia: GET(General Endotracheal) Pre-op Diagnosis: obstructing R colon mass Post-op Diagnosis: same Procedure: lap assisted R hemicolectomy Inf/Abcess present in the surg proc area at time of surgery?: No EBL: Minimal Complications: none Specimen(s): right colon to pathology
[2018-01-20] MEDS ORDERED: PROMETHAZINE HCL 25 MG TAB PO PRN (13:18)
--- NOTE | 2018-01-20 13:21 | SOAPPROG ---
SOAP Progress Note Assessment/Plan: Assessment: STABLE Plan:ADVANCE DIET 01/20/18 13:19 WOUND OK/ NOT USING PAIN MEDS/ AFEBRILE/ VS OK/ HCT 25/ UO GOOD/ AMBULATING WELL / CHEST CLEAR ABD SOFT, MILDLY DISTENDED WITH BOWELL SOUNDS Objective: Vital Signs Temp Pulse Resp BP Pulse Ox 36.9 C 86 16 168/92 H 92 01/20/18 08:00 01/20/18 08:00 01/20/18 08:00 01/20/18 08:00 01/20/18 08:00 Laboratory Results 01/19/18 04:35 01/18/18 10:50 01/19/18 01/20/18 01/21/18 05:59 05:59 05:59 Intake Total 2564 650 Output Total 1150 875 Balance 1414 -225 PT 14.1 SEC (12.0-15.0) 01/14/18 21:42 INR 1.07 (0.83-1.16) 01/14/18 21:42 ICD10 Worksheet Patient Problems: Problems Problem Status Onset Abdominal pain Acute
[2018-01-21] MEDS: KETOROLAC 15 MG/1 ML SDV IVP SCH ×4 (00:46→18:32)
[2018-01-21] MEDS: TAMSULOSIN HCL 0.4 MG CAP PO SCH (08:21)
--- NOTE | 2018-01-21 09:15 | SOAPPROG ---
SOAP Progress Note Assessment/Plan: Assessment: 77 y/o M s/p right hemicolectomy for CA 01/17 S: "having a hard time" today. Passing flatus and BMs. Had one bout of diarrhea yesterday. Reglan was stopped and he has been having regular soft stools this morning. Pain seems to be well controlled with toradol alone. He has been getting OOB several times per day. O: Depressed affect Afebrile Cardiac: RRR Lungs: CTA bilaterally Abdomen: soft, but distended, ting intact, +BS, incision cdi Plan: 3 way abdominal xray for continued distention. Unclear why he is not progressing very quickly, perhaps it is due to his realization of being newly diagnosed with CA. Will continue to follow. 01/21/18 09:08 Objective: Vital Signs Temp Pulse Resp BP Pulse Ox 36.9 C 68 16 155/87 H 91 L 01/21/18 07:20 01/21/18 07:20 01/21/18 07:20 01/21/18 07:20 01/21/18 07:20 Laboratory Results 01/19/18 04:35 01/18/18 10:50 01/20/18 01/21/18 01/22/18 05:59 05:59 05:59 Intake Total 650 550 350 Output Total 875 550 Balance -225 0 350 PT 14.1 SEC (12.0-15.0) 01/14/18 21:42 INR 1.07 (0.83-1.16) 01/14/18 21:42 ICD10 Worksheet Patient Problems: Problems Problem Status Onset Abdominal pain Acute
[2018-01-21] MEDS: HYDROCODONE/APAP 5/325 TAB PO PRN (09:41)
--- NOTE | 2018-01-21 11:07 | CPEKG ---
Heart Rate: 74 RR Interval: 811 P-R Interval: 81 QRSD Interval: 100 QT Interval: 404 QTC Interval: 449 P Fabius: 0 QRS Fabius: -9 T Wave Fabius: 61 EKG Severity - BORDERLINE ECG - EKG Impression: SINUS RHYTHM EKG Impression: SHORT ID INTERVAL, ACCELERATED AV CONDUCTION Electronically Signed By: Stanford Clay 21-Jan-2018 11:09:22
--- NOTE | 2018-01-21 12:18 | ASMTCMCOM ---
CM Note CM Note Notes: CM spoke w/ JORGE Lepe regarding d/c POC. PT has cleared pt to be independent. Pt will most likely not have any d/c needs. CM available for changes. Plan: Independent Date Signed: 01/21/2018 12:17 PM Electronically Signed By:PAO Simon
[2018-01-21] MEDS: D5W 1/2 NS 1,000 ML IV SCH ×2 (12:20→22:11)
--- NOTE | 2018-01-21 13:19 | HOSPPROG ---
Hospitalist Progress Note Assessment/Plan: # 77 yo Male abd pain, SBO, cecal mass, s/p resection on 01/17 # acute bowel obstruction - 2/2 obstructing cecal mass- s/p surgical resection per Dr. Hoang 01/17- patient reporting increased distention this am CT abdomen (personally reviewed and interpreted) shows concerning cecal/ ileal cecal thickening consistent with malignancy - checking abdominal xray - cecal path pending - needs repeat colonoscopy in 6 months - encourage ambulation - prn pain meds - cont diet per surgery - surgery following # Chest pain - sharp pain -can partially be provoked on palpation- no pleuritic component oxygen saturations 91% on RA - check EKG - check troponin and basic labs # Urinary tract infection- cultures growing Streptococcus Gallolyticus - continue ceftriaxone 02/25 # KOFI- improved after IVF - creatinine 1.1 # Anemia, mild- suspect postoperative- H&H normal # prophylaxis-ambulation, SCD's # diet NPO # disposition greater than 2 midnights as the patient requires ongoing care for bowel obstruction I have discussed the case with RN - pt with CP this am will check labs and EKG Subjective: sharp pain on anterior chest and abd distention Objective: Vital Signs Temp Pulse Resp BP Pulse Ox 36.9 C 68 16 155/87 H 91 L 01/21/18 07:20 01/21/18 07:20 01/21/18 07:20 01/21/18 07:20 01/21/18 07:20 Laboratory Results 01/21/18 11:00 01/21/18 11:00 01/20/18 01/21/18 01/22/18 05:59 05:59 05:59 Intake Total 650 550 350 Output Total 875 550 Balance -225 0 350 PT 14.1 SEC (12.0-15.0) 01/14/18 21:42 INR 1.07 (0.83-1.16) 01/14/18 21:42 - Physical Exam Constitutional: appears nourished Eyes: anicteric sclera Ears, Nose, Mouth, Throat: moist mucous membranes Cardiovascular: regular rate and rhythym, systolic murmur Respiratory: no respiratory distress Gastrointestinal: distension, No guarding, No rebound Genitourinary: no bladder fullness Skin: warm Musculoskeletal: No asymmetric calves Neurologic: AAOx3 Psychiatric: interacting appropriately, flat affect Lymph, Heme, Immunologic: no cervical LAD ICD10 Worksheet Patient Problems: Problems Problem Status Onset Abdominal pain Acute
--- NOTE | 2018-01-21 19:27 | SOAPPROG ---
SOAP Progress Note Assessment/Plan: Assessment: STABLE Plan:ADVANCE DIET 01/20/18 13:19 WOUND OK/ NOT USING PAIN MEDS/ AFEBRILE/ VS OK/ HCT 25/ UO GOOD/ AMBULATING WELL / CHEST CLEAR ABD SOFT, MILDLY DISTENDED WITH BOWELL SOUNDS 01/21/18 19:26 More distended today with poor appetite/some flatus and diarrhea stools/2 way suggest an SBO postop Plan is to go back to NPO and IV fluids a follow-up 2 way abdomen Objective: Vital Signs Temp Pulse Resp BP Pulse Ox 36.8 C 78 16 151/86 H 94 01/21/18 15:24 01/21/18 15:24 01/21/18 15:24 01/21/18 15:24 01/21/18 15:24 Laboratory Results 01/21/18 11:00 01/21/18 11:00 01/20/18 01/21/18 01/22/18 05:59 05:59 05:59 Intake Total 650 550 350 Output Total 875 550 350 Balance -225 0 0 PT 14.1 SEC (12.0-15.0) 01/14/18 21:42 INR 1.07 (0.83-1.16) 01/14/18 21:42 ICD10 Worksheet Patient Problems: Problems Problem Status Onset Abdominal pain Acute
[2018-01-22] MEDS: KETOROLAC 15 MG/1 ML SDV IVP SCH ×5 (00:47→22:49)
[2018-01-22] MEDS ORDERED: PROTOCOL POTASSIUM 1 DOSE MISC PRN (08:23)
[2018-01-22] MEDS: TAMSULOSIN HCL 0.4 MG CAP PO SCH (10:05)
[2018-01-22] MEDS ORDERED: D10W 1,000 ML IV PRN (10:14)
[2018-01-22 11:22] LABS: PLATELET COUNT 199 10^3/uL (150-400)
[2018-01-22 11:33] LABS: INR 1.09 (0.83-1.16); PROTIME(PATIENT) 14.3 SEC (12.0-15.0)
--- NOTE | 2018-01-22 12:42 | SOAPPROG ---
SOAP Progress Note Assessment/Plan: Assessment/Plan: 77 Y M admitted with SBO found to be 2/2 obstructing cecal tumor. s/p laparotomy with right colectomy. Continued ileus vs obstruction today. No N/V so no NGT as of now. Continue NPO. Patient ambulating frequently. On reglan. Ordered TPN today. S: walking about 5 times a day. still no gas or bm for about 2 days now. O: alert, nad ctab rrr abd distended, rare BS inc cdi 01/22/18 12:40 Objective: Vital Signs Temp Pulse Resp BP Pulse Ox 36.5 C 85 16 142/90 H 97 01/22/18 07:34 01/22/18 07:34 01/22/18 07:34 01/22/18 07:34 01/22/18 07:34 Laboratory Results 01/22/18 11:11 01/22/18 11:11 01/21/18 01/22/18 01/23/18 05:59 05:59 05:59 Intake Total 550 2527 Output Total 550 350 Balance 0 2177 PT 14.3 SEC (12.0-15.0) 01/22/18 11:11 INR 1.09 (0.83-1.16) 01/22/18 11:11 ICD10 Worksheet Patient Problems: Problems Problem Status Onset Abdominal pain Acute
[2018-01-22] MEDS ORDERED: POTASSIUM Cl (KCl) 100 ML IV SCH (12:45)
[2018-01-22] MEDS ORDERED: POTASSIUM Cl (KCl) 10 MEQ in NS 100 ML IV SCH (13:00)
[2018-01-22] MEDS: POTASSIUM Cl (KCl) 100 ML IV SCH ×3 (13:35→16:40)
[2018-01-22] MEDS ORDERED: D5W 1/2 NS 1,000 ML IV SCH (14:00)
[2018-01-22] MEDS ORDERED: K PHOS 10 MMOL in D5W 250 ML IV ONE (14:00)
--- NOTE | 2018-01-22 14:16 | HOSPPROG ---
Hospitalist Progress Note Assessment/Plan: # 77 yo Male abd pain, SBO, cecal mass, s/p resection on 01/17 # acute bowel obstruction -initially 2/2 obstructing cecal mass- s/p surgical resection per Dr. Hoang 01/17- Patient reporting decreased distention this am xray abdomen (personally reviewed and interpreted) persistent small-bowel obstruction versus ileus - surgery initiating TPN today - encourage ambulation - prn pain meds - NPO - continue IVF # cecal mass sat status post surgical resection- path pending # Chest pain - sharp pain -can partially be provoked on palpation- no pleuritic component oxygen saturations 93% on RA - check EKG - check troponin and basic labs # Urinary tract infection- cultures growing Streptococcus Gallolyticus - continue ceftriaxone 04/27 - cont flomax for presumed urinary obstruction # hypokalemia - repleting per protocol # KOFI- improved after IVF - creatinine 1.0 # Anemia, mild- suspect postoperative- H&H normal # prophylaxis-ambulation, SCD's # diet NPO # disposition greater than 2 midnights as the patient requires ongoing care for bowel obstruction I have discussed the case with Surgery- starting TPN today PICC line to be placed Subjective: Remains distended Objective: Vital Signs Temp Pulse Resp BP Pulse Ox 36.5 C 85 16 142/90 H 97 01/22/18 07:34 01/22/18 07:34 01/22/18 07:34 01/22/18 07:34 01/22/18 07:34 Laboratory Results 01/22/18 11:11 01/22/18 11:11 01/21/18 01/22/18 01/23/18 05:59 05:59 05:59 Intake Total 550 2527 Output Total 550 350 Balance 0 2177 PT 14.3 SEC (12.0-15.0) 01/22/18 11:11 INR 1.09 (0.83-1.16) 01/22/18 11:11 - Physical Exam Constitutional: chronically ill appearing Eyes: anicteric sclera Ears, Nose, Mouth, Throat: moist mucous membranes Cardiovascular: regular rate and rhythym Respiratory: no respiratory distress, no rales or rhonchi Gastrointestinal: normoactive bowel sounds Genitourinary: no bladder fullness Skin: warm Musculoskeletal: No asymmetric calves Neurologic: AAOx3 Psychiatric: interacting appropriately Lymph, Heme, Immunologic: no cervical LAD ICD10 Worksheet Patient Problems: Problems Problem Status Onset Abdominal pain Acute
--- NOTE | 2018-01-22 16:12 | SOAPPROG ---
SOAP Progress Note Assessment/Plan: Assessment: STABLE Plan:ADVANCE DIET 01/20/18 13:19 WOUND OK/ NOT USING PAIN MEDS/ AFEBRILE/ VS OK/ HCT 25/ UO GOOD/ AMBULATING WELL / CHEST CLEAR ABD SOFT, MILDLY DISTENDED WITH BOWELL SOUNDS 01/21/18 19:26 More distended today with poor appetite/some flatus and diarrhea stools/2 way suggest an SBO postop Plan is to go back to NPO and IV fluids a follow-up 2 way abdomen 01/22/18 16:10 2-way still consistent with sbo/ abd soft, distended/ no nausea or emesis/ no bm may need ng Objective: Vital Signs Temp Pulse Resp BP Pulse Ox 36.7 C 78 16 166/93 H 97 01/22/18 15:42 01/22/18 15:42 01/22/18 15:42 01/22/18 15:42 01/22/18 15:42 Laboratory Results 01/22/18 11:11 01/22/18 11:11 01/21/18 01/22/18 01/23/18 05:59 05:59 05:59 Intake Total 550 2527 Output Total 550 350 Balance 0 2177 PT 14.3 SEC (12.0-15.0) 01/22/18 11:11 INR 1.09 (0.83-1.16) 01/22/18 11:11 ICD10 Worksheet Patient Problems: Problems Problem Status Onset Abdominal pain Acute
[2018-01-22] MEDS: OXYMETAZOLINE 30 ML NASAL SPRAY EACHNARE PRN (21:45)
[2018-01-22] MEDS: TPN 1 EA BAG IV SCH (22:35)
[2018-01-23] MEDS: D5W 1/2 NS 1,000 ML IV SCH ×2 (02:05→17:34)
[2018-01-23] MEDS: KETOROLAC 15 MG/1 ML SDV IVP SCH ×3 (04:55→12:25)
[2018-01-23] MEDS ORDERED: POTASSIUM Cl (KCl) 50 ML IV SCH (08:15)
[2018-01-23] MEDS: TAMSULOSIN HCL 0.4 MG CAP PO SCH (08:18)
[2018-01-23] MEDS: POTASSIUM Cl (KCl) 100 ML IV SCH ×2 (08:19→11:06)
--- NOTE | 2018-01-23 11:39 | SOAPPROG ---
SOAP Progress Note Assessment/Plan: Assessment/Plan: 77 Y M admitted with SBO found to be 2/2 obstructing cecal tumor. s/p laparotomy with right colectomy. On TPN. Ileus may be starting to improve. Beginning to pass gas. Will get AXR before thoughts of advancing diet. Discussed with medicine and consulted oncology who will see patient later today. Discussed path with pt and son. S: walking about 5 times a day. beginning to have gas and diarrhea. O: alert, nad ctab rrr abd still distended but softer, improved BS inc cdi 01/23/18 11:37 Objective: Vital Signs Temp Pulse Resp BP Pulse Ox 36.3 C 93 18 141/94 H 97 01/23/18 08:00 01/23/18 08:00 01/23/18 08:00 01/23/18 08:00 01/23/18 08:00 Laboratory Results 01/22/18 11:11 01/23/18 04:30 01/22/18 01/23/18 01/24/18 05:59 05:59 05:59 Intake Total 2527 2864 Output Total 350 400 425 Balance 2177 2464 -425 PT 14.3 SEC (12.0-15.0) 01/22/18 11:11 INR 1.09 (0.83-1.16) 01/22/18 11:11 ICD10 Worksheet Patient Problems: Problems Problem Status Onset Abdominal pain Acute
[2018-01-23] MEDS ORDERED: PROTOCOL K PHOSPHATE 1 DOSE IV PRN (13:29)
[2018-01-23] MEDS ORDERED: HYDROmorphone HCL/NS 0.5 MG/ML SYR IVP PRN (13:40)
--- NOTE | 2018-01-23 15:55 | HOSPPROG ---
Hospitalist Progress Note Assessment/Plan: * Obstruction colon cancer s/p resection -oncology to see * Post-op ileus -slow improvement -TPN * UTI - Strep Galloylyticus -s/p IV ceftriaxone x 7 days * Suspected BPH -flomax Subjective: Abd pain - improves with toradol, some flatus Objective: Vital Signs Temp Pulse Resp BP Pulse Ox 36.6 C 82 16 180/91 H 96 01/23/18 15:34 01/23/18 15:34 01/23/18 15:34 01/23/18 15:34 01/23/18 15:34 Laboratory Results 01/22/18 11:11 01/23/18 04:30 01/22/18 01/23/18 01/24/18 05:59 05:59 05:59 Intake Total 2527 2864 Output Total 350 400 425 Balance 2177 2464 -425 PT 14.3 SEC (12.0-15.0) 01/22/18 11:11 INR 1.09 (0.83-1.16) 01/22/18 11:11 ABD XRAY - persistent ileus case d/w TARI Slade for Dr. Hoang - path has returned positive for ca, T3 - oncology to see - Physical Exam Constitutional: no apparent distress, appears nourished, not in pain Cardiovascular: regular rate and rhythym, no murmur, rub, or gallop Respiratory: no respiratory distress, no rales or rhonchi, clear to auscultation Gastrointestinal: soft, non-tender abdomen, distension, No tenderness, No hepatosplenomegally, No guarding, No rebound Skin: no rashes or abrasions, no fluctuance, no induration Neurologic: AAOx3, sensation intact bilaterally Psychiatric: interacting appropriately, not anxious, not encephalopathic, thought process linear ICD10 Worksheet Patient Problems: Problems Problem Status Onset Abdominal pain Acute
--- NOTE | 2018-01-23 17:43 | GCON ---
[f rep ] CONSULTATION MEDICAL ONCOLOGY CONSULTATION DATE OF CONSULTATION: 01/23/2018 REQUESTING PHYSICIAN: Dr. Mack Hoang. 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 RECOMMENDATIONS: 1. I would check his iron studies with iron, iron binding capacity, and a ferritin. 2. Check CEA. 3. As an outpatient, I would do a PET-CT scan to ensure there is no evidence of metastatic disease. 4. At the patient's request, I have entered dietary consult since he is concerned about how his diet should change management facilitator the next 3-6 months. 5. Provided that the patient does not have evidence of metastatic disease, his staging would be IIA and, in that case, close clinical observation and no adjuvant therapy would be appropriate. ASSESSMENT: This very pleasant and quite healthy 77-year-old white male was visiting relatives in [facility] at the end of December 2017, when he developed sudden onset of abdominal pain which did n ot resolve. He presented to [facility]'s Emergency Room and was found to have an obs tructing lesion in his cecum. He subsequently underwent surgical resection. Microsatellite instabil ity testing is pending. The patient had a T3 N0 lesion. There is no obvious evidence of metastatic disease at this time, although this has not been fully determined. If he does not have evidence of m etastatic disease, his staging is IIA, and I would estimate that his overall chance of recurrent dise ase in the next 5 years to be approximately 15%. Because adjuvant chemotherapy would only shave a fe w percentage points off this at best, in general, outside of a clinical trial setting, adjuvant treat ment is not offered for these low stage lesions. He does tell me that he has not had a colonoscopy in the last 20 years. He should have a full formal colonoscopy within the next 1 year. We will plan on seeing him as an outpatient next week and arranging a PET-CT scan. He is likely deep g to be in the [facility] for the next few weeks recovering from surgery before he returns to [place] . HISTORY OF PRESENT ILLNESS: Please see Assessment. PAST MEDICAL HISTORY: Remarkable for a basal cell carcinoma, status post resection. 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 He has noted some ongoing chronic problems with diarrhea. It will be interesting to see if that persists postoperatively. PAST SURGICAL HISTORY: Remarkable for his above-mentioned right hemicolectomy. He has also had rota tor cuff surgery, basal cell carcinoma resection, and an appendectomy. FAMILY HISTORY: Remarkable for his mother having a cancer of unknown type. His father in a mot or vehicle accident. SOCIAL HISTORY: Patient does not smoke. He does not use alcohol. He is currently retired. REVIEW OF SYSTEMS: Remarkable for the abdominal pain and diarrhea and currently has abdominal bloati ng and cramping, but otherwise his 10-system review is otherwise unremarkable. PHYSICAL EXAMINATION: GENERAL: An alert, oriented white male in no acute distress who is sitting in his chair at the bedside. HEENT: Unremarkable. NECK: No adenopathy. LUNGS: No rales or rhonchi . CARDIAC: Shows regular rate and rhythm. ABDOMEN: Some high-pitched bowel sounds that are presen t in all quadrants. LOWER EXTREMITIES: No significant edema at this time. LABORATORY EXAM: I do not see a CEA in his laboratory exam at this time. His white blood cell count is 5.8, with a hemoglobin of 12.8 and an MCV of 94. His platelets are normal at 199. His chemistry shows slightly low potassium at 3.3 with a creatinine which is normal at 0.9. His total bilirubin i s normal at 1.1. Thank you very much for allowing us to participate in this pleasant gentleman's oncologic care. We l reid forward to assisting with his management during his hospitalization and beyond. /[id number]/MODL
[2018-01-23] MEDS: IBUPROFEN 600 MG TAB PO PRN (21:13)
[2018-01-23] MEDS: TPN 1 EA BAG IV SCH (21:13)
[2018-01-24] MEDS: OXYMETAZOLINE 30 ML NASAL SPRAY EACHNARE PRN (01:20)
[2018-01-24] MEDS: D5W 1/2 NS 1,000 ML IV SCH ×2 (02:30→21:25)
[2018-01-24] MEDS: IBUPROFEN 600 MG TAB PO PRN ×2 (05:02→21:26)
[2018-01-24 05:03] LABS: PLATELET COUNT 160 10^3/uL (150-400)
[2018-01-24] MEDS: TAMSULOSIN HCL 0.4 MG CAP PO SCH (09:31)
[2018-01-24] MEDS ORDERED: POTASSIUM Cl (KCl) 100 ML IV ONE (09:45)
--- NOTE | 2018-01-24 11:22 | SOAPPROG ---
SOAP Progress Note Assessment/Plan: Assessment: 77 y/o M s/p right hemicolectomy for CA 01/17 S: Doing much better today. Passed a large amount of gas last night and feels that he is less distended. Still ambulating several times per day. Biggest complaint is dry nose from the dry climate in [place]. O: Alert Afebrile Cardiac: RRR Lungs: CTA bilaterally Abdomen: distended, but less than yesterday. Soft. +BS. Incision cdi. Plan: Pt seen and evaluated with Dr. Hoang. Pleased he is doing so much better. Will advance to clear liquid diet. Continue to monitor. Hopefully discharge sometime this weekend. 01/24/18 11:19 Objective: Vital Signs Temp Pulse Resp BP Pulse Ox 36.7 C 80 19 167/98 H 96 01/24/18 07:12 01/24/18 07:12 01/24/18 07:12 01/24/18 07:12 01/24/18 07:12 Laboratory Results 01/24/18 04:45 01/24/18 04:45 01/23/18 01/24/18 01/25/18 05:59 05:59 05:59 Intake Total 2864 2188 Output Total 400 5 1000 Balance 2464 -2024 1188 PT 14.3 SEC (12.0-15.0) 01/22/18 11:11 INR 1.09 (0.83-1.16) 01/22/18 11:11 ICD10 Worksheet Patient Problems: Problems Problem Status Onset Abdominal pain Acute
[2018-01-24] MEDS: ENOXAPARIN 40 MG/0.4 ML SYR SC SCH (12:52)
--- NOTE | 2018-01-24 14:05 | SOAPPROG ---
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 Probable discharge to home in 48hrs. He will need to follow up with us as an outpatient for further staging and final treatment recommendations. Although ferritin is normal, it is an acute phase reactant and may be falsely elevated. His transferrin saturation is low at 16%. Therefore, I started him on FeSO4 325mg/day PO to start in the AM. Plan: - start ferrous sulfate as stated above. - f/u in the office in 1-2 weeks I'll sign off for now. Please call with questions. The patient was not at the bedside. I discussed the above with the patient's son who was waiting for [place] to return from a walk. Objective: Vital Signs Temp Pulse Resp BP Pulse Ox 36.7 C 80 19 167/98 H 96 01/24/18 07:12 01/24/18 07:12 01/24/18 07:12 01/24/18 07:12 01/24/18 07:12 Laboratory Results 01/24/18 04:45 01/24/18 04:45 01/22/18 01/23/18 01/24/18 23:59 23:59 23:59 Intake Total 3777 1264 2188 Output Total 1675 1750 Balance 3777 -411 438 PT 14.3 SEC (12.0-15.0) 01/22/18 11:11 INR 1.09 (0.83-1.16) 01/22/18 11:11 ICD10 Worksheet Patient Problems: Problems Problem Status Onset Abdominal pain Acute
[2018-01-24] MEDS ORDERED: SODIUM CL NASAL GEL 14.1 GM TUBE TP PRN (15:04)
--- NOTE | 2018-01-24 17:00 | HOSPPROG ---
Hospitalist Progress Note Assessment/Plan: * Obstruction colon cancer s/p resection -path c/w T3 tumor -f/u onc outpatient for staging * Post-op ileus -slow improvement - now on clears -TPN * UTI - Strep Galloylyticus -s/p IV ceftriaxone x 7 days * Suspected BPH -flomax * HTN -start lisinopril * Iron deficient anemia -PO iron Subjective: No complaints. Walking mulitple times per day so declines Lovenox. Objective: Vital Signs Temp Pulse Resp BP Pulse Ox 36.8 C 73 18 167/93 H 97 01/24/18 15:22 01/24/18 15:22 01/24/18 15:22 01/24/18 15:22 01/24/18 15:22 Laboratory Results 01/24/18 04:45 01/24/18 04:45 01/23/18 01/24/18 01/25/18 05:59 05:59 05:59 Intake Total 2864 2188 Output Total 400 5 1000 Balance 2464 -2025 1188 PT 14.3 SEC (12.0-15.0) 01/22/18 11:11 INR 1.09 (0.83-1.16) 01/22/18 11:11 - Physical Exam Constitutional: no apparent distress, appears nourished, not in pain Cardiovascular: regular rate and rhythym, no murmur, rub, or gallop Respiratory: no respiratory distress, no rales or rhonchi, clear to auscultation Gastrointestinal: normoactive bowel sounds, soft, non-tender abdomen, no palpable masses Skin: no rashes or abrasions, no fluctuance, no induration Neurologic: AAOx3, sensation intact bilaterally Psychiatric: interacting appropriately, not anxious, not encephalopathic, thought process linear ICD10 Worksheet Patient Problems: Problems Problem Status Onset Abdominal pain Acute
[2018-01-24] MEDS: TPN 1 EA BAG IV SCH (21:06)
[2018-01-25] MEDS: TAMSULOSIN HCL 0.4 MG CAP PO SCH (09:28)
[2018-01-25] MEDS: LISINOPRIL 10 MG TAB PO SCH (09:28)
[2018-01-25] MEDS: FERROUS SULFATE 325 MG TAB PO SCH (09:28)
[2018-01-25] MEDS: ENOXAPARIN 40 MG/0.4 ML SYR SC SCH (09:34)
--- NOTE | 2018-01-25 10:27 | SOAPPROG ---
SOAP Progress Note Assessment/Plan: Assessment: 77 y/o M s/p right hemicolectomy for CA 01/17 S: Doing much better today. Passed a large amount of gas last night and feels that he is less distended. Still ambulating several times per day. Biggest complaint is dry nose from the dry climate in [place]. O: Alert Afebrile Cardiac: RRR Lungs: CTA bilaterally Abdomen: distended, but less than yesterday. Soft. +BS. Incision cdi. Plan: Pt seen and evaluated with Dr. Hoang. Pleased he is doing so much better. Will advance to clear liquid diet. Continue to monitor. Hopefully discharge sometime this weekend. 01/24/18 11:19 01/25/18 10:23 Sitting in chair during visit. Continues to improve clinically. Getting up out of bed frequently. Tolerating clears just fine. Passing flatus and liquid stools. Less distended. Afebrile. Abdominal xray this am to evaluate bowel distension. Possibly advance diet later today or tomorrow. Objective: Vital Signs Temp Pulse Resp BP Pulse Ox 36.8 C 75 16 144/88 H 97 01/25/18 07:41 01/25/18 07:41 01/25/18 07:41 01/25/18 07:41 01/25/18 07:41 Laboratory Results 01/24/18 04:45 01/25/18 06:30 01/24/18 01/25/18 01/26/18 05:59 05:59 05:59 Intake Total 6148 Output Total 2024 3500 Balance -20248 PT 14.3 SEC (12.0-15.0) 01/22/18 11:11 INR 1.09 (0.83-1.16) 01/22/18 11:11 ICD10 Worksheet Patient Problems: Problems Problem Status Onset Abdominal pain Acute
--- NOTE | 2018-01-25 15:52 | HOSPPROG ---
Hospitalist Progress Note Assessment/Plan: * Obstruction colon cancer s/p resection -path c/w T3 tumor -f/u onc outpatient for staging * Post-op ileus -slow improvement - now on clears -TPN * UTI - Strep Galloylyticus -s/p IV ceftriaxone x 7 days * Suspected BPH -flomax * HTN -start lisinopril * Iron deficient anemia -PO iron Subjective: Tolerating clears, lots of gas Objective: Vital Signs Temp Pulse Resp BP Pulse Ox 36.5 C 82 14 149/87 H 97 01/25/18 15:05 01/25/18 15:05 01/25/18 15:05 01/25/18 15:05 01/25/18 15:05 Laboratory Results 01/24/18 04:45 01/25/18 06:30 01/24/18 01/25/18 01/26/18 05:59 05:59 05:59 Intake Total 6148 Output Total 2024 3500 850 Balance -2024 2648 -850 PT 14.3 SEC (12.0-15.0) 01/22/18 11:11 INR 1.09 (0.83-1.16) 01/22/18 11:11 - Physical Exam Constitutional: no apparent distress, appears nourished, not in pain Cardiovascular: regular rate and rhythym, no murmur, rub, or gallop Respiratory: no respiratory distress, no rales or rhonchi, clear to auscultation Gastrointestinal: normoactive bowel sounds, soft, non-tender abdomen, no palpable masses Skin: no rashes or abrasions, no fluctuance, no induration Neurologic: AAOx3, sensation intact bilaterally Psychiatric: interacting appropriately, not anxious, not encephalopathic, thought process linear ICD10 Worksheet Patient Problems: Problems Problem Status Onset Abdominal pain Acute
--- NOTE | 2018-01-25 16:33 | ASMTCMCOM ---
CM Note CM Note Notes: Spoke w/RN, pt still on TPN but will get weaned off before discharging home. Plan remains the same, anticipate will dc home with support of LP when medically stable. CM available for any changes. DC Plan: Independent Date Signed: 01/25/2018 04:32 PM Electronically Signed By:Danita Yañez RN
[2018-01-25] MEDS: D5W 1/2 NS 1,000 ML IV SCH (17:04)
[2018-01-25] MEDS: TPN 1 EA BAG IV SCH (21:08)
[2018-01-26] MEDS: ENOXAPARIN 40 MG/0.4 ML SYR SC SCH (09:09)
[2018-01-26] MEDS: LISINOPRIL 10 MG TAB PO SCH (09:10)
[2018-01-26] MEDS: FERROUS SULFATE 325 MG TAB PO SCH (09:11)
[2018-01-26] MEDS: TAMSULOSIN HCL 0.4 MG CAP PO SCH (09:11)
[2018-01-26] MEDS: D5W 1/2 NS 1,000 ML IV SCH (13:16)
--- NOTE | 2018-01-26 15:53 | SOAPPROG ---
SOAP Progress Note Assessment/Plan: Assessment: 77 y/o M s/p right hemicolectomy for CA 01/17 Tolerated cereal, almond milk and a banana from breakfast Had crackers and applesauce for lunch No distension No bloating Advance diet Wean TPN to off S: Feeling much better today O: Incision cdi, fading ecchymosis. Soft, non distended, non tender Plan: 01/26/18 15:51 Objective: Vital Signs Temp Pulse Resp BP Pulse Ox 36.8 C 104 H 16 111/61 97 01/26/18 15:44 01/26/18 15:44 01/26/18 15:44 01/26/18 15:44 01/26/18 15:44 Laboratory Results 01/24/18 04:45 01/26/18 05:30 01/25/18 01/26/18 01/27/18 05:59 05:59 05:59 Intake Total 6148 2069 Output Total 3500 2050 Balance 2648 19 PT 14.3 SEC (12.0-15.0) 01/22/18 11:11 INR 1.09 (0.83-1.16) 01/22/18 11:11 ICD10 Worksheet Patient Problems: Problems Problem Status Onset Abdominal pain Acute
--- NOTE | 2018-01-26 17:57 | HOSPPROG ---
Hospitalist Progress Note Assessment/Plan: * Obstruction colon cancer s/p resection -path c/w T3 tumor -f/u onc outpatient for staging * Post-op ileus -advancing diet -DC TPN soon * UTI - Strep Galloylyticus -s/p IV ceftriaxone x 7 days * Suspected BPH -flomax * HTN -patient monitors BP closely at home - never high -hold lisinopril and monitor * Iron deficient anemia -PO iron Subjective: Had first solid for breakfast this am. So far so good. Still very watery stool. Objective: Vital Signs Temp Pulse Resp BP Pulse Ox 36.8 C 104 H 16 111/61 97 01/26/18 15:44 01/26/18 15:44 01/26/18 15:44 01/26/18 15:44 01/26/18 15:44 Laboratory Results 01/24/18 04:45 01/26/18 05:30 01/25/18 01/26/18 01/27/18 05:59 05:59 05:59 Intake Total 6148 2069 1111 Output Total 3500 2050 Balance 2648 19 1111 PT 14.3 SEC (12.0-15.0) 01/22/18 11:11 INR 1.09 (0.83-1.16) 01/22/18 11:11 - Physical Exam Constitutional: no apparent distress, appears nourished, not in pain Cardiovascular: regular rate and rhythym, no murmur, rub, or gallop Respiratory: no respiratory distress, no rales or rhonchi, clear to auscultation Gastrointestinal: normoactive bowel sounds, soft, non-tender abdomen, no palpable masses Skin: no rashes or abrasions, no fluctuance, no induration Neurologic: AAOx3, sensation intact bilaterally Psychiatric: interacting appropriately, not anxious, not encephalopathic, thought process linear ICD10 Worksheet Patient Problems: Problems Problem Status Onset Abdominal pain Acute
[2018-01-26] MEDS: TPN 1 EA BAG IV SCH (21:19)
[2018-01-27 07:36] VITALS: BP 140/89
--- NOTE | 2018-01-27 08:26 | SOAPPROG ---
SOAP Progress Note Assessment/Plan: Assessment: 77 y/o M s/p right hemicolectomy for CA 01/17 Tolerating regular diet Wean TPN to off Remove every other staple Home soon S: Feeling well. Ambulating O: Incision cdi. Soft, non distended, non tender CTAB RRR Appears well Plan: 01/26/18 15:51 01/27/18 08:25 Objective: Vital Signs Temp Pulse Resp BP Pulse Ox 36.4 C 83 18 140/89 H 97 01/27/18 07:35 01/27/18 07:35 01/27/18 07:35 01/27/18 07:35 01/27/18 07:35 Laboratory Results 01/24/18 04:45 01/27/18 06:15 01/26/18 01/27/18 01/28/18 05:59 05:59 05:59 Intake Total 2068 1361 Output Total 2049 1200 Balance 19 161 PT 14.3 SEC (12.0-15.0) 01/22/18 11:11 INR 1.09 (0.83-1.16) 01/22/18 11:11 ICD10 Worksheet Patient Problems: Problems Problem Status Onset Abdominal pain Acute
[2018-01-27] MEDS: FERROUS SULFATE 325 MG TAB PO SCH (10:14)
[2018-01-27] MEDS: TAMSULOSIN HCL 0.4 MG CAP PO SCH (10:14)
[2018-01-27] MEDS: ENOXAPARIN 40 MG/0.4 ML SYR SC SCH (10:18)
--- NOTE | 2018-01-27 11:01 | ASDISCHSUM ---
Discharge Information Plan Status:Home with No Needs Medically Cleared to Leave:01/27/2018 Discharge Date:01/27/2018 CM D/C Disposition:Home, Routine, Self-Care ADT D/C Disposition:Home, Routine, Self-Care Projected Discharge Date:01/27/2018 Transportation at D/C:Family Discharge Delay Reason: Follow-Up Date:01/27/2018 Discharge Slot: Final Diagnosis: Placement Information Patient Contact Information Contact Name:SELVIN Relationship:Life Partner Address: Work Phone: City: [facility] Phone: State/Zip Code: Email: Financial Information Financial Class:Medicare Primary Plan Desc:MEDICARE INPATIENT Primary Plan Number:[id number] Secondary Plan Desc: OUT OF STATE INDEMNITY Secondary Plan Number:[id number] Assessment Information [facility] Initial CM Assessment Living Arrangements What is your living Answers: Alone arrangement? Who do you live with? Type Of Residence What kind of residence do Answers: House you live in? Discharge Plan Comments Coordination Status Comments Notes: Pt is a 77 y/o man admitted for abdominal pain. Pt lives in [place]. Pt has a supportive life partner. GI has been consulted. Needs are TBD at this time. CM to follow. Plan: TBD Date Signed: 01/15/2018 12:16 PM Electronically Signed By:PAO Simon [facility] CM Progress Note CM Note CM Note Notes: Today Pt. had colectomy surgery w/ Dr. Hoang. PT and OT not ordered. Per RN, Pt. was very fit and able prior to surgery. Anticipate independent d/c unless Pt. has needs post surgery. CM available should d/c POC change. Date Signed: 01/17/2018 04:20 PM Electronically Signed By:Nisha Aburto LCSW [facility] CM Progress Note CM Note CM Note Notes: Spoke w/RN, plan remains the same. Pt will dc home w/support of LP when medically stable. CM available for any changes. DC Plan: Independent Date Signed: 01/19/2018 11:40 AM Electronically Signed By:Danita Yañez RN [facility] CM Progress Note CM Note CM Note Notes: CM spoke w/ JORGE Lepe regarding d/c POC. PT has cleared pt to be independent. Pt will most likely not have any d/c needs. CM available for changes. Plan: Independent Date Signed: 01/21/2018 12:17 PM Electronically Signed By:PAO Simon [facility] CM Progress Note CM Note CM Note Notes: Spoke w/JORGE, pt still on TPN but will get weaned off before discharging home. Plan remains the same, anticipate will dc home with support of LP when medically stable. CM available for any changes. DC Plan: Independent Date Signed: 01/25/2018 04:32 PM Electronically Signed By:Danita Yañez RN Intervention Information Intervention Type:*IM-Signed Date of Service:01/18/2018 09:58 AM Patient Type:Inpatient Staff Member:Citlalli Landis Hours: Discipline: Severity: Comment:
--- NOTE | 2018-01-27 17:21 | GDS ---
[f rep st] DISCHARGE SUMMARY DISCHARGE DIAGNOSES: 1. Obstructive colon cancer, status post resection. 2. Postoperative ileus. 3. Strep gallolyticus urinary tract infection. 4. Benign prostatic hypertrophy. 5. Iron deficiency anemia. HISTORY: The patient is a 77-year-old male who presented with an obstructive colon cancer [facility]. This was resected surgically by Dr. Hoang. Pathology consistent with a T3 tumor. He saw Dr. Chinedu jessica in the hospital. He will follow up with Oncology as an outpatient for staging. He had a prolo nged postoperative ileus requiring TPN. We slowly advanced his diet and, at discharge, he is doing w ell on a regular diet. Dr. Alonzo started oral iron for iron deficiency anemia. New diagnosis BPH during this hospitalization, and Flomax was initiated. DISCHARGE MEDICATIONS: Please see computer record for full detailed list. New medications: 1. Flomax 0.4 mg p.o. daily. 2. Ferrous sulfate 325 mg p.o. daily. ADDITIONAL DISCHARGE INSTRUCTIONS: 1. Follow up with Dr. Hoang in 1 week. 2. Follow up with Dr. Alonzo in 2 weeks. Greater than 30 minutes' time was spent arranging this discharge. Patient seen and examined by me on day of discharge. /[id number]/MODL
== END 2018-01-27 14:18 | disposition home or self-care (01) | DRG 330 ==
LOC: OBSVTOIN 22:52 → F3E 23:50
PROVIDERS: ADMIT Family Medicine; ATTEND Internal Medicine
PROC: 0DBM8ZX Excision of Descending Colon, Via Natural or Artificial Opening Endoscopic, Diagnostic (ICD-10-PCS; 2018-01-16)
PROC: 0DBK8ZX Excision of Ascending Colon, Via Natural or Artificial Opening Endoscopic, Diagnostic (ICD-10-PCS; 2018-01-16)
PROC: 0DBN8ZX Excision of Sigmoid Colon, Via Natural or Artificial Opening Endoscopic, Diagnostic (ICD-10-PCS; 2018-01-16)
PROC: 0DBH8ZX Excision of Cecum, Via Natural or Artificial Opening Endoscopic, Diagnostic (ICD-10-PCS; 2018-01-16)
PROC: 0DTF4ZZ Resection of Right Large Intestine, Percutaneous Endoscopic Approach (ICD-10-PCS; principal; 2018-01-17 10:45)
PROC: 02HV33Z Insertion of Infusion Device into Superior Vena Cava, Percutaneous Approach (ICD-10-PCS; 2018-01-22)
DX: C18.0 Malignant neoplasm of cecum (principal); D12.2 Benign neoplasm of ascending colon; D12.5 Benign neoplasm of sigmoid colon; D12.4 Benign neoplasm of descending colon; N39.0 Urinary tract infection, site not specified; B95.5 Unspecified streptococcus as the cause of diseases classified elsewhere; K56.7 Ileus, unspecified; D50.9 Iron deficiency anemia, unspecified; N17.9 Acute kidney failure, unspecified; G62.9 Polyneuropathy, unspecified; N40.0 Benign prostatic hyperplasia without lower urinary tract symptoms; R07.9 Chest pain, unspecified
CPT/HCPCS: 96374; 97116-GP; 97161-GP; C1751; G8978-GP-CI; G8979-GP-CI; G8980-GP-CI; J0694; J0696; J1100; J1170; J1650; J1885; J2270; J2405; J2704; J2710; J2765; J3010; J3480; Q9967